=== PATIENT | female | born 1965 | race Caucasian/White ===

== ENCOUNTER → 2017-01-07 | Outpatient (REF) | payer OTHER | LOC: M SFHCCLAY 14:37 | PROVIDERS: ATTEND Family Medicine | DX: Z12.4 Encounter for screening for malignant neoplasm of cervix (principal) ==

== ENCOUNTER → 2017-01-11 | Outpatient (CLI) | payer OTHER ==
--- NOTE | 2017-01-11 16:45 | REP ---
Clinical: Trauma. Technique: AP, lateral, bilateral oblique views left foot . Findings: The osseous structures and joint spaces are intact and normal. There is no evidence for acute fracture or dislocation. Surrounding soft tissues are unremarkable. No subcutaneous emphysema or radiodense foreign body. Impression: Normal examination . No acute fracture or dislocation. Signed by Chris Delarosa MD 01/11/2017 04:36 P
== END ==
LOC: M WUC 16:09
PROVIDERS: ATTEND Physician Assistant
DX: S90.32XA Contusion of left foot, initial encounter (principal); X58.XXXA Exposure to other specified factors, initial encounter; Y92.9 Unspecified place or not applicable; Y93.9 Activity, unspecified; Y99.9 Unspecified external cause status

== ENCOUNTER → 2018-08-09 | Outpatient (CLI) | payer BC ==
--- NOTE | 2018-08-09 15:01 | REP ---
MAXILLOFACIAL CT WITHOUT CONTRAST: HISTORY: Right mandibular cyst. COMPARISON: Complete sinuses 04/25/2015. Very minimal mucosal thickening is present in the right maxillary sinus. The remaining sinuses are clear. The osteomeatal units are patent. The middle and inferior nasal turbinates are partially paradoxical. There is taylor bullosa of the left middle nasal turbinate. There is minimal deviation of the nasal septum to the right. A spur is present arising from the right side of the nasal septum. This spur abuts the right inferior nasal turbinate. The cribriform plate, medial uriostegui of the orbits and optic canals are intact. The carotid canals form a segment of the posterolateral uriostegui of the sphenoid sinus. Calcification is present in the left tonsil. This is secondary to previous inflammatory disease. The marcella- and hypopharynx are normal in appearance. There is no bone lesion. IMPRESSION: Sinus mucosal thickening as described above. Electronically Signed by Giovanni Smith MD 08/09/2018 03:09 P
== END ==
LOC: M RAD 13:57
PROVIDERS: ATTEND Dentist Oral and Maxillofacial Surgery
DX: J34.89 Other specified disorders of nose and nasal sinuses (principal)

== ENCOUNTER → 2019-01-04 | Outpatient (REF) | payer BC ==
[2019-01-06 14:29] LABS: HPV HYBRID CAPTURE II Negative (Negative)
== END ==
LOC: M LAB REF 17:12
PROVIDERS: ATTEND Obstetrics & Gynecology
DX: Z12.4 Encounter for screening for malignant neoplasm of cervix (principal)
CPT/HCPCS: 87624; G0123

== ENCOUNTER → 2019-01-07 | Outpatient (CLI) | payer BC ==
--- NOTE | 2019-01-07 16:05 | REP ---
Pelvic sonography: History: Pelvic pain. Evaluate uterus and ovaries. Comparison pelvic sonography October 11, 2015. Findings: Transabdominal and transvaginal scanning are performed. Uterine dimensions are normal at 5.2 x 2.1 x 2.3 cm. Endometrial echo 0.2 cm thick and centrally placed. Uterus is retroverted. No focal uterine mass is seen. No free fluid is noted. The visualized bladder uriostegui are smooth. Normal size ovaries are seen bilaterally. Right ovary dimensions are 1.7 x 1.1 x 1.7 cm. The left ovary measures 2.1 x 1.0 x 1.4 cm. Doppler flow is normal in both ovaries, resistive indices are 0.56 and 0.57 on the right and left respectively. Impression: No abnormality noted. Retroverted uterus. Electronically Signed by Ed Painter MD 01/07/2019 04:05 P
== END ==
LOC: M RAD 11:55
PROVIDERS: ATTEND Obstetrics & Gynecology
DX: R10.2 Pelvic and perineal pain (principal)

== ENCOUNTER → 2019-09-03 | Outpatient (CLI) | payer BC | LOC: M LABSMTC 12:35 | PROVIDERS: ATTEND Family Medicine | DX: Z11.59 Encounter for screening for other viral diseases (principal) ==

== ENCOUNTER → 2020-02-17 | Outpatient (REF) | payer BC | LOC: M LAB REF 15:19 | PROVIDERS: ATTEND Physician Assistant | DX: R19.7 Diarrhea, unspecified (principal) ==

== ENCOUNTER → 2020-04-12 | Outpatient (CLI) | payer BC | LOC: M LABSMTC 14:48 | PROVIDERS: ATTEND Family Medicine | DX: Z20.828 Contact with and (suspected) exposure to other viral communicable diseases (principal) ==

== ENCOUNTER → 2020-05-14 | Outpatient (CLI) | payer BC ==
[~2020-05-14] MED LIST: GASTROGRAFIN SOLUTION 30ML (Q9963) As Ordered ONE; ISOVUE-370 76% 100ML VIAL As Ordered ONE
--- NOTE | 2020-05-15 08:08 | REP ---
INDICATION: DIARRHEA UNSPECIFIED GENERALIZED ABD PAIN. COMPARISON: None TECHNIQUE: Axial contrast-enhanced images from the lung bases to the pubic symphysis using oral and 100 cc Isovue 370 intravenous contrast material. Coronal and sagittal reformations obtained.. This CT examination was performed using the following dose reduction techniques: Automated exposure control, adjustment of mA and/or kv according to the patient's size, and the use of iterative reconstruction technique. FINDINGS: Lung bases are clear. Visualized heart and pericardium normal. Liver demonstrates mild diffuse fatty infiltration without focal hepatic lesion. The spleen, pancreas, gallbladder, bilateral adrenal glands and kidneys are normal. The enteric system including stomach, small, and large bowel appears normal. No evidence for obstruction or acute inflammatory process. Normal terminal ileum and appendix are identified in the right lower quadrant. Pelvis demonstrates normal bladder and age-appropriate uterus/adnexa. No ascites. No free air. No intraperitoneal or retroperitoneal adenopathy. Abdominal aorta and vasculature appear normal. Musculoskeletal structures are intact and without acute osseous abnormality. IMPRESSION: No acute abdominopelvic pathology appreciated. <Electronically signed by Chris Delarosa > 05/15/20 [id number]
== END ==
LOC: M RAD 16:05
PROVIDERS: ATTEND Family Medicine
DX: R19.7 Diarrhea, unspecified (principal); R10.84 Generalized abdominal pain
CPT/HCPCS: 74177; Q9963; Q9967

== ENCOUNTER → 2020-05-16 | Outpatient (CLI) | payer BC ==
[2020-05-16 17:40] LABS: BASO # 0.1 10^3/uL (0.0-0.2); BASO % 1.7 % (0.0-1.0); EOS # 0.1 10^3/uL (0.0-0.5); EOS % 2.3 % (0.0-3.0); HEMATOCRIT 40.5 % (36.0-47.0); HEMOGLOBIN 13.2 g/dl (12.0-15.5); LYMPH # 1.6 10^3/uL (1.5-5.0); LYMPH % 30.1 % (24.0-44.0); MEAN CORPUSCULAR HEMOGLOBIN 31.3 pg (27.0-33.0); MEAN CORPUSCULAR HGB CONC 32.6 g/dl (32.0-36.5); MONO # 0.4 10^3/uL (0.0-0.8); MONO % 7.7 % (0.0-5.0); NEUTROPHILS # 3.1 10^3/uL (1.5-8.5); NEUTROPHILS % 57.8 % (36.0-66.0); PLATELET COUNT, AUTOMATED 373 10^3/uL (150-450); RED BLOOD COUNT 4.22 10^6/uL (4.00-5.40); WHITE BLOOD COUNT 5.3 10^3/uL (4.0-10.0)
[2020-05-16 18:17] LABS: ALBUMIN 4.2 GM/DL (3.2-5.2); ALT/SGPT 19 U/L (12-78); BILIRUBIN,DIRECT < 0.1 MG/DL (0.0-0.2); BILIRUBIN,TOTAL 0.5 MG/DL (0.2-1.0); BLOOD UREA NITROGEN 11 MG/DL (7-18); CARBON DIOXIDE LEVEL 28 MEQ/L (21-32); CHLORIDE LEVEL 109 MEQ/L (98-107); CREATININE FOR GFR 0.91 MG/DL (0.55-1.30); FERRITIN 63 NG/ML (8-252); GLOMERULAR FILTRATION RATE > 60.0 (>51); GLUCOSE, FASTING 103 MG/DL (70-100); IRON (FE) 108 UG/DL (50-170); PERCENT SATURATION 33.6 % (13.2-45.0); POTASSIUM SERUM 4.3 MEQ/L (3.5-5.1); SODIUM LEVEL 140 MEQ/L (136-145); THYROID STIMULATING HORMONE 0.948 uIU/ML (0.358-3.740); TOTAL IRON BINDING CAPACITY 321 UG/DL (250-450); TOTAL PROTEIN 6.7 GM/DL (6.4-8.2)
[2020-05-18 18:07] LABS: ENDOMYSIAL ABY IgA Negative (Negative); TISSUE TRANSGLUTAMINASE IgA <2 U/mL (0-3); TISSUE TRANSGLUTAMINASE IgG <2 U/mL (0-5)
== END ==
LOC: M WUC 14:47
PROVIDERS: ATTEND Nurse Practitioner Adult Health
DX: R19.7 Diarrhea, unspecified (principal); R10.30 Lower abdominal pain, unspecified

== ENCOUNTER → 2020-05-24 | Outpatient (REF) | payer BC ==
[2020-05-25 16:09] LABS: Lyme Disease IgG/IgM Antibodie <0.91 ISR (0.00-0.90); Lyme Disease IgM Ab Quantitati <0.80 index (0.00-0.79)
== END ==
LOC: M LABWUC 11:18
PROVIDERS: ATTEND Family Medicine
DX: R19.7 Diarrhea, unspecified (principal); R42 Dizziness and giddiness

== ENCOUNTER → 2020-06-01 | Outpatient (CLI) | payer BC | LOC: M LABSMTC 12:27 | PROVIDERS: ATTEND Anesthesiology | DX: Z01.812 Encounter for preprocedural laboratory examination (principal); Z20.822 Contact with and (suspected) exposure to COVID-19 ==

== ENCOUNTER 2020-06-06 11:21 | Day surgery (SDC) | payer BC ==
[~2020-06-06] VITALS: Ht 162.6 cm; Wt 43.5 kg
[~2020-06-06 11:21] MED LIST changes: -GASTROGRAFIN SOLUTION 30ML (Q9963) As Ordered ONE; -ISOVUE-370 76% 100ML VIAL As Ordered ONE; +NS 1,000 ML IV ONE
--- OUTSIDE RECORDS SUMMARY | 2020-06-06 11:31 | CCD | Continuity of Care Document ---
Author Dorita Osuna D.O. Organization Unknown Address [address] [place] [address] Phone [phone] Care Team Providers Care Silica Mixer Operator Name Role Phone Thais Carreon D.O. AUTM [phone] Francy Bruce M.D. AUTM [phone] Problems Description No Information Available Social History Type Date Description Comments Sex Unknown ETOH Use Drinks 1 Alcoholic Beverage Per Day Tobacco Use Start: Unknown Patient has never smoked Recreational Drug Use Denies Drug Use Smoking Status Reviewed: 04/25/20 Patient has never smoked Exercise Type/Frequency Yoga Exercise Type/Frequency Walks 4 times a week Sun Exposure Uses sunscreen Seat Belt/Car Seat Always uses seat belt Allergies, Adverse Reactions, Alerts Description No Known Drug Allergies Medications Active Medications SIG Qnty Indications Ordering Provide r Date Hydrocortisone (Perianal) 2.5% Cre am apply to external hemorrhoidal area and rectal area twice daily as needed 30gm K64.9 Thais Carreon D.O. 02/16/2020 Hydrocortisone Acetate 25mg Suppos itory insert one suppository daily as needed 12units K64.9 Thais Franks D.O. 02/16/2020 Immunizations Description No Information Available Vital Signs Date Vital Result Comment 04/25/2020 8:26am BP Systolic 120 mmHg BP Diastolic 70 mmHg Height 63.0 inches 5'3" Weight 104.38 lb BMI (Body Mass Index) 18.5 kg/m2 Heart Rate 81 /min Respiratory Rate 18 /min Body Temperature 98.2 F O2 % BldC Oximetry 97 % Purdin Body Weight 115 lb 02/16/2020 1:42pm BP Systolic 110 mmHg BP Diastolic 68 mmHg Height 63.0 inches 5'3" Weight 105.00 lb BMI (Body Mass Index) 18.6 kg/m2 Heart Rate 66 /min Respiratory Rate 18 /min Body Temperature 98.5 F O2 % BldC Oximetry 99 % Purdin Body Weight 115 lb Results Test Acquired Date Facility Test Result H/L Range Note Coronavirus 2019 Nasopharygeal 04/12/2020 [facility] Outpa tient Testing (Registration) [address] [place] [address] [phone] Coronavirus 2019 Nasopharygeal This nucleic aci <SEE N OTE> 1 G I Profile Stool PCR So 02/17/2020 [facility] Outpatient Testing (Registration) [address] [place] [address] [phone] Campylobacter Not Detected 2 C.difficile A/B Not Detected 3 Plesiomonas shigelloides Not Detected 4 Salmonella Not Detected 5 Vibro Not Detected 6 Vibrio cholerae Not Detected 7 Yersinia enterocolitica Not Detected 8 Enteroaggregative Ecoli Not Detected 9 Entropathogenic Ecoli Not Detected 10 Enterotoxigenic Ecoli Not Detected 11 Shiga toxin producing Ecoli Not Detected 12 E coli 0157 Not applicable 13 Shigella Entroinvasive Ecoli Not Detected 14 Cryptosporidium Not Detected 15 Cyclospora cayetanensis Not Detected 16 Entamoeba histolytica Not Detected 17 Giardia lamblia Not Detected 18 Adenovirus F 40/41 Not Detected 19 Astrovirus Not Detected 20 Norovirus GI/Gii Not Detected 21 Rotavirus A Not Detected 22 Saprovirus Performed at: B <SEE NOTE> 23 Laboratory test finding 01/05/2020 [facility] Image-Guided Pap W/Age Based SCR Protocols (SEE NOTE) 24 Thinprep Tis Pap And HPV Mrna E6/E7 Refl 01/05/2020 [facility] Report Status: DNR Normal Clinical Information: (SEE NOTE) Normal 25 LMP: (SEE NOTE) Normal 26 Prev. Pap: (SEE NOTE) Normal 27 Prev. BX: NONE GIVEN Normal Source: (SEE NOTE) Normal 28 Statement Of Adequacy: (SEE NOTE) Normal 29 General Categorization: DNR Normal Interpretation/Result: (SEE NOTE) 30 Infection: DNR Normal Comment: (SEE NOTE) Normal 31 Vinyl Cutter: (SEE NOTE) Normal See Note: 32 Review Vinyl Cutter: DNR Normal Pathologist: DNR Normal Comment (SEE NOTE) 33 HPV mRNA E6/E7 Not Detected Normal Not Detected 34 Laboratory test finding 01/05/2020 [facility] Dia Enhanced PDF Report [id number] SEE IMAGE 1 This nucleic acid amplificat ion test was developed and its performance characteristics determined by [facility]. Nucleic acid amplification tests include PCR and TMA. This test has not been FDA cleared or approved. This test has been authorized by FDA under an Emergency Use Authorization (EUA). This test is only authorized for the duration of time the declaration that circumstances exist justifying the authorization of the emergency use of in vitro diagnostic tests for detection of SARS-CoV-2 virus and/or diagnosis of COVID-19 infection under section 564(b)(1) of the Act, 21 U.S.C. 360bbb-3 (b) (1), unless the authorization is terminated or revoked sooner. When diagnostic testing is negative, the possibility of a false negative result should be considered in the context of a patient's recent exposures and the presence of clinical signs and symptoms consistent with COVID-19. An individual without symptoms of COVID-19 and who is not shedding SARS-CoV-2 virus would expect to have a negative (not detected) result in this assay. Performed at: [facility] [address] [facility], [place], [place] [id number] [employer]: Afua Justin PhD, Phone: [phone] Not Detected 2 3 4 5 6 7 8 9 10 11 12 13 14 15 16 17 18 19 20 21 22 23 Performed at: [address] [id number] [employer]: Kevan Figueroa MD, Phone: [phone] Not Detected 24 This order for age-based cer vical cancer and STI screening follows ACOG guidelines(PB 168, 140, MSC779). See individual assays for performing site location. 25 None given 26 NONE GIVEN 27 NONE GIVEN 28 Cervix, Endocervix 29 SATISFACTORY FOR EVALUATION 30 Negative for intraepithelial lesion or malignancy. Atrophic pattern; predominantly parabasal cells 31 This Pap test has been evalu ated with computer assisted technology. Parabasal cells in smears that lack maturation due to atrophy or other hormonal reasons cannot be differentiated from transformation zone cells. Accordingly, presence or absence of endocervical or transformation zone components cannot be reported in this patient. 32 Reference Range: ZL, CT(ASCP) CT screening location: [facility], [address] [place] [address], [place] [address] . 33 EXPLANATORY NOTE: The Pap is a screening test for cervical cancer. It is not a diagnostic test and is subject to false negative and false positive results. It is most reliable when a satisfactory sample, regularly obtained, is submitted with relevant clinical findings and history, and when the Pap result is evaluated along with historic and current clinical information. 34 This test was performed usin g the APTIMA HPV Assay ([employer] This assay detects E6/E7 viral messenger RNA (mRNA) from 14 high-risk HPV types (16,18,31,33,35,39,45,51,52,56,58,59,66,68). The analytical performance characteristics of this assay have been determined by [employer]. The modifications have not been cleared or approved by the FDA. This assay has been validated pursuant to the CLIA regulations and is used for clinical purposes. NO COLLECTION DATE RECEIVED. WE HAVE USED THE DATE THE SPECIMEN WAS RECEIVED BY THIS LABORATORY THE COLLECTION DATE. IF THIS IS INCORRECT, PLEASE CONTACT CLIENT SERVICES. PHONE NUMBER: [phone] Procedures Description No Information Available Medical Devices Description No Information Available Encounters Type Date Location Provider Dx Diagnosis Office Visit 04/25/2020 8:20a [facility] Mendez Brown.OGayathri R19.7 Diarrhea, unspecified K64.9 Unspecified hemorrhoids Office Visit 02/16/2020 1:30p [facility] Ruthie BrownOGayathri R19.7 Diarrhea, unspecified K64.9 Unspecified hemorrhoids Office Visit 01/04/2020 1:00p [facility] Ruthie CalixOGayathri Z01.419 Encntr for livestock counter exam (general ) (routine) w/o abn findings Assessments Date Code Description Provider 04/25/2020 R19.7 Diarrhea, unspecified Mendez Covarrubias.OGayathri 04/25/2020 K64.9 Unspecified hemorrhoids Ruthie KennedyOGayathri 02/16/2020 R19.7 Diarrhea, unspecified Thais Rosa Maria ano-Fely, D.O. 02/16/2020 K64.9 Unspecified hemorrhoids Thais Fontaine D.O. 01/04/2020 Z01.419 Encounter for gyneco logical examination (general) (routine) without abnormal findings Thais Carreon D.O. Plan of Treatment No Information Available Functional Status Description No Information Available Mental Status Description No Information Available Referrals Refer to Dr Reason for Referral Status Appt Date Heaven Cardona M.D. This is a 54 year old female with chronic diarrhea and her GI panel has been negative. Please evalaute and treat. [facility] [address] [place] [address] [phone]
--- OUTSIDE RECORDS SUMMARY | 2020-06-06 11:31 | CCD | Continuity of Care Document ---
Author Author Dorita HAAS M.D. Organization Unknown Address [address] [place] [address] Phone [phone] Care Team Providers Care Certified Appliance Service Technician Name Role Phone Thais Carreon DO AUTM [phone] Problems Active Problems Provider Date Diarrhea Fredy Haas M.D. Onset: 05/29/19 21 Screening for malignant neoplasm of colon Fredy rome M.D. Onset: 08/03/2014 Social History Type Date Description Comments Sex Unknown ETOH Use Occasionally Tobacco Use Start: Unknown Patient has never smoked Allergies, Adverse Reactions, Alerts Description No Known Drug Allergies Medications Active Medications SIG Qnty Indications Ordering Provide r Date Sutab [id number] Tablets as directed 1box Fredy Haas M.D. 05/29/2020 History Medications No Active Medications Unknown - 05/29/2020 Immunizations Description No Information Available Vital Signs Date Vital Result Comment 05/29/2020 11:39am Height 64 inches 5'4" Weight 101.00 lb BP Systolic 113 mmHg BP Diastolic 86 mmHg Heart Rate 59 /min BMI (Body Mass Index) 17.3 kg/m2 Weight 45.814 kg Body Temperature 97.5 F 08/03/2014 2:07pm Height 64 inches 5'4" Weight 103.00 lb BP Systolic 110 mmHg BP Diastolic 80 mmHg Heart Rate 58 /min BMI (Body Mass Index) 17.7 kg/m2 Weight 46.721 kg Results Description No Information Available Procedures Description No Information Available Medical Devices Description No Information Available Encounters Type Date Location Provider Dx Diagnosis Office Visit 05/29/2020 11:00a Main Office Fredy S. Waldo,M.D. R 19.7 Diarrhea, unspecified Assessments Date Code Description Provider 05/29/2020 R19.7 Diarrhea, unspecified Fredy Haas M.D. Plan of Treatment Future Appointment(s):* 06/06/2020 12:45 pm - Fredy Haas M.D. at Main Office 05/29/2020 - Fredy Haas M.D.* R19.7 Diarrhea, unspecified* Comments:* 54 yo wf who presents for a colonoscopy due to chronic diarrhea for 2 months. Has bouts 2 to 3 times per day. No family h/o colon cancer. Last scope was in 2014.Plan:1. Colonoscopy to cecum + biopsies.2. Informed consent. Functional Status Description No Information Available Mental Status Description No Information Available Referrals Description No Information Available
--- OUTSIDE RECORDS SUMMARY | 2020-06-06 11:31 | CCD | Continuity of Care Document ---
Author Author Dorita CARREON D.O. Organization Unknown Address [address] [place] [address] Phone [phone] Care Team Providers Care Splicer Apprentice Name Role Phone Thais Carreon D.O. AUTM [phone] Francy Bruce M.D. AUTM [phone] Heaven Cardona M.D. AUTM [phone] Problems Description No Information Available Social History [...] SIG Qnty Indications Ordering Provide r Date Ciprofloxacin HCL 500mg Tablets 1 tablet by mouth twice a day for 7 days 14tabs Thais vela DGayathriOGayathri 05/14/2020 Metronidazole 500mg Tablets take one tablet by mouth twice daily for 7 days 14tabs Ruthie ValeOGayathri 05/14/2020 Hydrocortisone (Perianal) 2.5% Cre am apply to external hemorrhoidal area and rectal area twice daily as needed 30gm K64.9 Mendez Calix.OGayathri 02/16/2020 Hydrocortisone Acetate 25mg Suppos itory insert one suppository daily as needed 12units K64.9 Ruthie ValeOGayathri 02/16/2020 Immunizations Description No Information Available Vital Signs Date Vital Result Comment 04/25/2020 8:26am BP Systolic 120 mmHg BP Diastolic 70 mmHg Height 63.0 inches 5'3" Weight 104.38 lb BMI (Body Mass Index) 18.5 kg/m2 Heart Rate 81 /min Respiratory Rate 18 /min Body Temperature 98.2 F O2 % BldC Oximetry 97 % [place] Body Weight 115 lb 02/16/2020 1:42pm BP Systolic 110 mmHg BP Diastolic 68 mmHg Height 63.0 inches 5'3" Weight 105.00 lb BMI (Body Mass Index) 18.6 kg/m2 Heart Rate 66 /min Respiratory Rate 18 /min Body Temperature 98.5 F O2 % BldC Oximetry 99 % [place] Body Weight 115 lb Results Test Acquired Date Facility Test Result H/L Range Note Lyme Disease SCRN With Confirm 05/24/[address] [id number] [phone] Lyme Disease IgG/IgM Antibodie <0.91 ISR Normal 0 .00-0.90 1 Lyme Disease IgM Ab Quantitati <0.80 index Normal 0.00-0.79 2 CBC With Differential 05/16/2020 [facility] Outpatient Lesia knowles (Registration) [address] [place] [phone] White Blood Count 5.3 10 Normal 4.0-10.0 Red Blood Count 4.22 10 Normal 4.00-5.40 Hemoglobin 13.2 g/dL Normal 12.0-15.5 Hematocrit 40.5 % Normal 36.0-47.0 Mean Corpuscular Volume 96.0 fl Normal 80.0-96.0 Mean Corpuscular Hemoglobin 31.3 pg Normal 27.0-33.0 Mean Corpuscular HGB Conc 32.6 g/dL Normal 32.0-36.5 Red Cell Distribution Width 11.9 % Normal 11.5-14.5 Platelet Count, Automated 373 10 Normal 150-450 Neutrophils % 57.8 % Normal 36.0-66.0 Lymph % 30.1 % Normal 24.0-44.0 Becker % 7.7 % High 0.0-5.0 Eos % 2.3 % Normal 0.0-3.0 Baso % 1.7 % High 0.0-1.0 Immature Granulocyte % 0.4 % Normal 0-3.0 Nucleated Red Blood Cell % 0.0 % Normal 0-0 Neutrophils # 3.1 10 Normal 1.5-8.5 Lymph # 1.6 10 Normal 1.5-5.0 Becker # 0.4 10 Normal 0.0-0.8 Eos # 0.1 10 Normal 0.0-0.5 Baso # 0.1 10 Normal 0.0-0.2 Liver Profile 05/16/2020 [facility] Outpatient Testi ng (Registration) [address] [place] [address] [phone] Ast/Sgot 15 U/L Normal 7-37 Alt/SGPT 19 U/L Normal 12-78 Alkaline Phosphatase 41 U/L Low 45-117 Bilirubin,Total 0.5 mg/dL Normal 0.2-1.0 Bilirubin,Direct < 0.1 mg/dL Normal 0.0-0.2 Total Protein 6.7 GM/DL Normal 6.4-8.2 Albumin 4.2 GM/DL Normal 3.2-5.2 Albumin/Globulin Ratio 1.7 Normal 1.2-2.2 Basic Metabolic Profile 05/16/2020 [facility] Outpatient T esting (Registration) [address] [place] [address] [phone] Glucose, Fasting 103 mg/dL High 70-100 Blood Urea Nitrogen 11 mg/dL Normal 7-18 Creatinine For GFR 0.91 mg/dL Normal 0.55-1.30 Glomerular Filtration Rate > 60.0 Normal >51 3 Sodium Level 140 mEq/L Normal 136-145 Potassium Serum 4.3 mEq/L Normal 3.5-5.1 Chloride Level 109 mEq/L High 98-107 Carbon Dioxide Level 28 mEq/L Normal 21-32 Anion Gap 3 mEq/L Low 8-16 Calcium Level 9.0 mg/dL Normal 8.5-10.1 Total Iron Binding Capacit 05/16/2020 [facility] Outpatien t Testing (Registration) [address] [place] [address] [phone] Iron (Fe) 108 g/dL Normal 50-170 Total Iron Binding Capacity 321 g/dL Normal 250-450 Percent Saturation 33.6 % Normal 13.2-45.0 Laboratory test finding 05/16/2020 [facility] Outpatient T esting (Registration) [address] [place] [address] [phone] Immunoglobulin A 164.0 mg/dL Normal 70-400 Thyroid Stimulating Hormone 0.948 uIU/ML Normal 0.358-3.740 Ferritin 63 NG/ML Normal 8-252 Laboratory test finding 05/16/2020 [facility] Outpatient T esting (Registration) [address] [place] [address] [phone] Tissue Transglutaminase IgG <2 U/mL Normal 0-5 4 Tissue Transglutaminase IgA <2 U/mL Normal 0-3 5 Endomysial Joselyn IgA Negative Normal Negative 6 Endomysial Joselyn IgG SEE SEPARATE REP <SEE NOTE> Normal <1:10 7 Coronavirus 2019 Nasopharygeal 04/12/2020 [facility] Outpa tient Testing (Registration) [address] [place] [address] [phone] Coronavirus 2019 Nasopharygeal This nucleic aci <SEE N OTE> 8 G I Profile Stool PCR So 02/17/2020 [facility] Outpatient Testing (Registration) [address] [place] [address] [phone] Campylobacter Not Detected 9 C.difficile A/B Not Detected 10 Plesiomonas shigelloides Not Detected 11 Salmonella Not Detected 12 Vibro Not Detected 13 Vibrio cholerae Not Detected 14 Yersinia enterocolitica Not Detected 15 Enteroaggregative Ecoli Not Detected 16 Entropathogenic Ecoli Not Detected 17 Enterotoxigenic Ecoli Not Detected 18 Shiga toxin producing Ecoli Not Detected 19 E coli 0157 Not applicable 20 Shigella Entroinvasive Ecoli Not Detected 21 Cryptosporidium Not Detected 22 Cyclospora cayetanensis Not Detected 23 Entamoeba histolytica Not Detected 24 Giardia lamblia Not Detected 25 Adenovirus F 40/41 Not Detected 26 Astrovirus Not Detected 27 Norovirus GI/Gii Not Detected 28 Rotavirus A Not Detected 29 Saprovirus Performed at: B <SEE NOTE> 30 Laboratory test finding 01/05/2020 [facility] Image-Guided Pap W/Age Based SCR Protocols (SEE NOTE) 31 Thinprep Tis Pap And HPV Mrna E6/E7 Refl 01/05/2020 [facility] Report Status: DNR Normal Clinical Information: (SEE NOTE) Normal 32 LMP: (SEE NOTE) Normal 33 Prev. Pap: (SEE NOTE) Normal 34 Prev. BX: NONE GIVEN Normal Source: (SEE NOTE) Normal 35 Statement Of Adequacy: (SEE NOTE) Normal 36 General Categorization: DNR Normal Interpretation/Result: (SEE NOTE) 37 Infection: DNR Normal Comment: (SEE NOTE) Normal 38 Fire Information Officer: (SEE NOTE) Normal See Note: 39 Review Fire Information Officer: DNR Normal Pathologist: DNR Normal Comment (SEE NOTE) 40 HPV mRNA E6/E7 Not Detected Normal Not Detected 41 Laboratory test finding 01/05/2020 [facility] Enhanced PDF Report [id number] SEE IMAGE 1 Negative <0.91 Equivocal 0.91 - 1.09 Positive >1.09 2 Negative <0.80 Equivocal 0.80 - 1.19 Positive >1.19 . IgM levels may peak at 3-6 weeks post infection, then gradually decline. Performed at: [address] [id number] Community Organization Worker: Eliana Reis MD, Phone: [phone] 3 Units are mL/min/1.73 m2 Chronic Kidney Disease Staging per NKF: Stage I & II GFR >=60 Normal to Mildly Decreased Stage III GFR 30-59 Moderately Decreased Stage IV GFR 15-29 Severely Decreased Stage V GFR <15 Very Little GFR Left ESRD GFR <15 on [employer] 4 Negative 0 - 5 Weak Positive 6 - 9 Positive >9 5 Negative 0 - 3 Weak Positive 4 - 10 Positive >10 . Tissue Transglutaminase (tTG) has been identified as the endomysial antigen. Studies have demonstr- ated that endomysial IgA antibodies have over 99% specificity for gluten sensitive enteropathy. 6 Performed at: [address] [id number] Community Organization Worker: Eliana Reis MD, Phone: [phone] 7 SEE SEPARATE REPORT Testing performed at reference lab . Report copy to follow on a separate form. 05/25/20 REF LAB#:[phone] [id number] This nucleic acid amplificat ion test was developed and its performance characteristics determined by [facility]. Nucleic acid amplification tests include PCR and [...] detected) result in this assay. Performed at: [facility] [address], [place], [place] [id number] Community Organization Worker: Afua Justin PhD, Phone: [phone] Not Detected 9 10 11 12 13 14 15 16 17 18 19 20 21 22 23 24 25 26 27 28 29 30 Performed at: [address] [id number] Community Organization Worker: Kevan Figueroa MD, Phone: [phone] Not Detected 31 This order for age-based cer vical cancer and STI screening follows ACOG guidelines(PB 168, 140, HRV724). See individual assays for performing site location. 32 None given 33 NONE GIVEN 34 NONE GIVEN 35 Cervix, Endocervix 36 SATISFACTORY FOR EVALUATION 37 Negative for intraepithelial lesion or malignancy. Atrophic pattern; predominantly parabasal cells 38 This Pap test has been evalu ated with computer assisted technology. Parabasal cells in smears that lack maturation due to atrophy or other hormonal reasons cannot be differentiated from transformation zone cells. Accordingly, presence or absence of endocervical or transformation zone components cannot be reported in this patient. 39 Reference Range: ZL, CT(ASCP) CT screening location: [facility] [place], [address] [place] [address], [place] [address] . 40 EXPLANATORY NOTE: The Pap is a screening test for cervical cancer. It is not a diagnostic test and is subject to false negative and false positive results. It is most reliable when a satisfactory sample, regularly obtained, is submitted with relevant clinical findings and history, and when the Pap result is evaluated along with historic and current clinical information. 41 This test was performed ravi gomez the APTIMA HPV Assay ([employer] This assay detects E6/E7 viral messenger RNA (mRNA) from 14 high-risk HPV types (16,18,31,33,35,39,45,51,52,56,58,59,66,68). The analytical performance characteristics of this assay have been determined by [facility]. The modifications have not been cleared or approved by the FDA. This assay has been validated pursuant to the CLIA regulations and is used for clinical purposes. NO COLLECTION DATE RECEIVED. WE HAVE USED THE DATE THE SPECIMEN WAS RECEIVED BY THIS LABORATORY THE COLLECTION DATE. IF THIS IS INCORRECT, PLEASE CONTACT CLIENT SERVICES. PHONE NUMBER: [phone] Procedures Description No Information Available Medical Devices Description No Information Available Encounters Type Date Location Provider Dx Diagnosis Office Visit 04/25/2020 8:20a [facility] Mendez Calix.OGayathri R19.7 Diarrhea, unspecified K64.9 Unspecified hemorrhoids Office Visit 02/16/2020 1:30p [facility] Mendez Calix.O. R19.7 Diarrhea, unspecified K64.9 Unspecified hemorrhoids Office Visit 01/04/2020 1:00p [facility] Mendez Calix.OGayathri Z01.419 Encntr for ob gyn physician assistant exam (general ) (routine) w/o abn findings Assessments Date Code Description Provider 04/25/2020 R19.7 Diarrhea, unspecified Mendez Covarrubias.OGayathri 04/25/2020 K64.9 Unspecified hemorrhoids Mendez Kennedy.OGayathri 02/16/2020 R19.7 Diarrhea, unspecified Thais Smith D.OGayathri 02/16/2020 K64.9 Unspecified hemorrhoids Mendez Kennedy.OGayathri 01/04/2020 Z01.419 Encounter for gyneco logical examination (general) (routine) without abnormal findings Thais Carreon D.O. Plan of Treatment No Information Available Functional Status Description No Information Available Mental Status Description No Information Available Referrals Refer to Reason for Referral Status Appt Date Heaven Cardona M.D. This is a 54 year old female with chronic diarrhea and her GI panel has been negative. Please evalaute and treat. Closed 05/23/2020 [facility] [address] [place], [place] [id number] [phone]
--- OUTSIDE RECORDS SUMMARY | 2020-06-06 11:31 | CCD | Continuity of Care Document ---
Author Author Dorita CARREON D.O. Organization Unknown Address [address] [place] [address] Phone [phone] Care Team Providers Care Chyron Operator Name Role Phone Thais Carreon D.O. AUTM [phone] Francy Bruce M.D. AUTM [phone] Heaven Cardona M.D. AUTM [phone] Problems Description No Information Available Social History [...] F O2 % BldC Oximetry 97 % [place] Body Weight 115 lb 02/16/2020 1:42pm BP Systolic 110 mmHg BP Diastolic 68 mmHg Height 63.0 inches 5'3" Weight 105.00 lb BMI (Body Mass Index) 18.6 kg/m2 Heart Rate 66 /min Respiratory Rate 18 /min Body Temperature 98.5 F O2 % BldC Oximetry 99 % [place] Body Weight 115 lb Results Test Acquired Date Facility Test Result H/L Range Note CBC With Differential 05/16/2020 [facility] Outpatient Lesia knowles (Registration) [address] [place] [address] [phone] White Blood Count 5.3 10 Normal 4.0-10.0 [...] 36.0-66.0 Lymph % 30.1 % Normal 24.0-44.0 [place] % 7.7 % High 0.0-5.0 Eos % 2.3 % Normal 0.0-3.0 Baso % 1.7 % High 0.0-1.0 Immature Granulocyte % 0.4 % Normal 0-3.0 Nucleated Red Blood Cell % 0.0 % Normal 0-0 Neutrophils # 3.1 10 Normal 1.5-8.5 Lymph # 1.6 10 Normal 1.5-5.0 [place] # 0.4 10 Normal 0.0-0.8 Eos # 0.1 10 Normal 0.0-0.5 Baso # 0.1 10 Normal 0.0-0.2 Liver Profile 05/16/2020 [facility] Outpatient Testi ng (Registration) [address] [place] [address] [phone] Ast/Sgot 15 U/L Normal 7-37 Alt/SGPT 19 U/L Normal 12-78 Alkaline Phosphatase 41 U/L Low 45-117 Bilirubin,Total 0.5 mg/dL Normal 0.2-1.0 Bilirubin,Direct < 0.1 mg/dL Normal 0.0-0.2 Total Protein 6.7 GM/DL Normal 6.4-8.2 Albumin 4.2 GM/DL Normal 3.2-5.2 Albumin/Globulin Ratio 1.7 Normal 1.2-2.2 Basic Metabolic Profile 05/16/2020 [facility] Outpatient T esting (Registration) [address] [place] [address] [phone] Glucose, Fasting 103 mg/dL High 70-100 Blood Urea Nitrogen 11 mg/dL Normal 7-18 Creatinine For GFR 0.91 mg/dL Normal 0.55-1.30 Glomerular Filtration Rate > 60.0 Normal >51 1 Sodium Level 140 mEq/L Normal 136-145 Potassium Serum 4.3 mEq/L Normal 3.5-5.1 Chloride Level 109 mEq/L High 98-107 Carbon Dioxide Level 28 mEq/L Normal 21-32 Anion Gap 3 mEq/L Low 8-16 Calcium Level 9.0 mg/dL Normal 8.5-10.1 Total Iron Binding Capacit 05/16/2020 [facility] Outpatien t Testing (Registration) [address] [place] [address] [phone] Iron (Fe) 108 g/dL Normal 50-170 Total Iron Binding Capacity 321 g/dL Normal 250-450 Percent Saturation 33.6 % Normal 13.2-45.0 Laboratory test finding 05/16/2020 [facility] Outpatient T esting (Registration) [address] [place] [address] [phone] Immunoglobulin A 164.0 mg/dL Normal 70-400 Thyroid Stimulating Hormone 0.948 uIU/ML Normal 0.358-3.740 Ferritin 63 NG/ML Normal 8-252 Coronavirus 2019 Nasopharygeal 04/12/2020 [facility] Outpa tient Testing (Registration) [address] [place], [place] [id number] [phone] Coronavirus 2019 Nasopharygeal This nucleic aci <SEE N OTE> 2 G I Profile Stool PCR So 02/17/2020 [facility] Outpatient Testing (Registration) [address] [place], [place] [id number] [phone] Campylobacter Not Detected 3 C.difficile A/B Not Detected 4 Plesiomonas shigelloides Not Detected 5 Salmonella Not Detected 6 Vibro Not Detected 7 Vibrio cholerae Not Detected 8 Yersinia enterocolitica Not Detected 9 Enteroaggregative Ecoli Not Detected 10 Entropathogenic Ecoli Not Detected 11 Enterotoxigenic Ecoli Not Detected 12 Shiga toxin producing Ecoli Not Detected 13 E coli 0157 Not applicable 14 Shigella Entroinvasive Ecoli Not Detected 15 Cryptosporidium Not Detected 16 Cyclospora cayetanensis Not Detected 17 Entamoeba histolytica Not Detected 18 Giardia lamblia Not Detected 19 Adenovirus F 40/41 Not Detected 20 Astrovirus Not Detected 21 Norovirus GI/Gii Not Detected 22 Rotavirus A Not Detected 23 Saprovirus Performed at: B <SEE NOTE> 24 Laboratory test finding 01/05/2020 [facility] Image-Guided Pap W/Age Based SCR Protocols (SEE NOTE) 25 Thinprep Tis Pap And HPV Mrna E6/E7 Refl 01/05/2020 [facility] Report Status: DNR Normal Clinical Information: (SEE NOTE) Normal 26 LMP: (SEE NOTE) Normal 27 Prev. Pap: (SEE NOTE) Normal 28 Prev. BX: NONE GIVEN Normal Source: (SEE NOTE) Normal 29 Statement Of Adequacy: (SEE NOTE) Normal 30 General Categorization: DNR Normal Interpretation/Result: (SEE NOTE) 31 Infection: DNR Normal Comment: (SEE NOTE) Normal 32 Manager Sales Support: (SEE NOTE) Normal See Note: 33 Review Manager Sales Support: DNR Normal Pathologist: DNR Normal Comment (SEE NOTE) 34 HPV mRNA E6/E7 Not Detected Normal Not Detected 35 Laboratory test finding 01/05/2020 [facility] Enhanced PDF Report [id number] SEE IMAGE 1 Units are mL/min/1.73 m2 Chronic Kidney Disease Staging per NKF: Stage I & II GFR >=60 Normal to Mildly Decreased Stage III GFR 30-59 Moderately Decreased Stage IV GFR 15-29 Severely Decreased Stage V GFR <15 Very Little GFR Left ESRD GFR <15 on IRRIGATION TAX ASSESSOR COLLECTOR 2 This nucleic acid amplificat ion test was developed and its performance characteristics determined by [employer]. Nucleic acid amplification tests include PCR and [...] detected) result in this assay. Performed at: [facility] [address] [place], [place] [id number] Sustainable Development Policy Analyst: Afua Justin PhD, Phone: [phone] Not Detected 3 4 5 6 7 8 9 10 11 12 13 14 15 16 17 18 19 20 21 22 23 24 Performed at: [address] [id number] Sustainable Development Policy Analyst: Kevan Figueroa MD, Phone: [phone] Not Detected 25 This order for age-based cer vical cancer and STI screening follows ACOG guidelines(PB 168, 140, QIF209). See individual assays for performing site location. 26 None given 27 NONE GIVEN 28 NONE GIVEN 29 Cervix, Endocervix 30 SATISFACTORY FOR EVALUATION 31 Negative for intraepithelial lesion or malignancy. Atrophic pattern; predominantly parabasal cells 32 This Pap test has been evalu ated with computer assisted technology. Parabasal cells in smears that lack maturation due to atrophy or other hormonal reasons cannot be differentiated from transformation zone cells. Accordingly, presence or absence of endocervical or transformation zone components cannot be reported in this patient. 33 Reference Range: ZL, CT(ASCP) CT screening location: [facility] [place], [address] [place] [address] . 34 EXPLANATORY NOTE: The Pap is a screening test for cervical cancer. It is not a diagnostic test and is subject to false negative and false positive results. It is most reliable when a satisfactory sample, regularly obtained, is submitted with relevant clinical findings and history, and when the Pap result is evaluated along with historic and current clinical information. 35 This test was performed usin the APTIMA HPV Assay ([employer] This assay detects E6/E7 viral messenger RNA (mRNA) from 14 high-risk HPV types (16,18,31,33,35,39,45,51,52,56,58,59,66,68). The analytical performance characteristics of this assay have been determined by [facility]. The modifications have not been cleared or approved by the FDA. This assay has been validated pursuant to the CLIA regulations and is used for clinical purposes. NO COLLECTION DATE RECEIVED. WE HAVE USED THE DATE THE SPECIMEN WAS RECEIVED BY THIS LABORATORY THE COLLECTION DATE. IF THIS IS INCORRECT, PLEASE CONTACT CLIENT SERVICES. PHONE NUMBER: [phone] Procedures Description No Information Available Medical Devices Description No Information Available Encounters Type Date Location Provider Dx Diagnosis Office Visit 04/25/2020 8:20a [facility] Mendez Calix.OGayathri R19.7 Diarrhea, unspecified K64.9 Unspecified hemorrhoids Office Visit 02/16/2020 1:30p [facility] Mendez Calix.OGayathri R19.7 Diarrhea, unspecified K64.9 Unspecified hemorrhoids Office Visit 01/04/2020 1:00p [facility] Mendez Calix.OGayathri Z01.419 Encntr for test rack operator exam (general ) (routine) w/o abn findings Assessments Date Code Description Provider 04/25/2020 R19.7 Diarrhea, unspecified Mendez Covarrubias.OGayathri 04/25/2020 K64.9 Unspecified hemorrhoids Mendez Kennedy.OGayathri 02/16/2020 R19.7 Diarrhea, unspecified Thais Smith D.OGayathri 02/16/2020 K64.9 Unspecified hemorrhoids Thais Fontaine D.O. [...] has been negative. Please evalaute and treat. Patient Notified 05/23/2020 [facility] [address] [place] [address] [phone]
--- OUTSIDE RECORDS SUMMARY | 2020-06-06 11:31 | CCD | Continuity of Care Document ---
Author Author Dorita CARREON D.O. 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 AUTM Francy Bruce M.D. AUTM [phone] Heaven Cardona M.D. AUTM [phone] Problems Description No Information Available Social History [...] F O2 % BldC Oximetry 97 % [place] Body Weight 115 lb 02/16/2020 1:42pm BP Systolic 110 mmHg BP Diastolic 68 mmHg Height 63.0 inches 5'3" Weight 105.00 lb BMI (Body Mass Index) 18.6 kg/m2 Heart Rate 66 /min Respiratory Rate 18 /min Body Temperature 98.5 F O2 % BldC Oximetry 99 % [place] Body Weight 115 lb Results Test Acquired Date Facility Test Result H/L Range Note Lyme Disease SCRN With Confirm 05/24/[address] [id number] [phone] Lyme Disease IgG/IgM Antibodie <0.91 ISR Normal 0 .00-0.90 1 Lyme Disease IgM Ab Quantitati <0.80 index Normal 0.00-0.79 2 CBC With Differential 05/16/2020 [facility] Outpatient Lesia knowles (Registration) [address] [place] [address] [phone] White Blood Count 5.3 10 Normal 4.0-10.0 [...] 36.0-66.0 Lymph % 30.1 % Normal 24.0-44.0 [place] % 7.7 % High 0.0-5.0 Eos % 2.3 % Normal 0.0-3.0 Baso % 1.7 % High 0.0-1.0 Immature Granulocyte % 0.4 % Normal 0-3.0 Nucleated Red Blood Cell % 0.0 % Normal 0-0 Neutrophils # 3.1 10 Normal 1.5-8.5 Lymph # 1.6 10 Normal 1.5-5.0 [place] # 0.4 10 Normal 0.0-0.8 Eos # 0.1 10 Normal 0.0-0.5 Baso # 0.1 10 Normal 0.0-0.2 Liver Profile 05/16/2020 [facility] Outpatient Testi ng (Registration) [address] [place] [phone] Ast/Sgot 15 U/L Normal 7-37 Alt/SGPT 19 U/L Normal 12-78 Alkaline Phosphatase 41 U/L Low 45-117 Bilirubin,Total 0.5 mg/dL Normal 0.2-1.0 Bilirubin,Direct < 0.1 mg/dL Normal 0.0-0.2 Total Protein 6.7 GM/DL Normal 6.4-8.2 Albumin 4.2 GM/DL Normal 3.2-5.2 Albumin/Globulin Ratio 1.7 Normal 1.2-2.2 Basic Metabolic Profile 05/16/2020 [facility] Outpatient T esting (Registration) [address] [place] [address] [phone] Glucose, Fasting 103 mg/dL High 70-100 Blood [...] Normal 8.5-10.1 Total Iron Binding Capacit 05/16/2020 [facility] Outpatien t Testing (Registration) [address] [place] [phone] Iron (Fe) 108 g/dL Normal 50-170 Total Iron Binding Capacity 321 g/dL Normal 250-450 Percent Saturation 33.6 % Normal 13.2-45.0 Laboratory test finding 05/16/2020 [facility] Outpatient T esting (Registration) [address] [place] [address] [phone] Immunoglobulin A 164.0 mg/dL Normal 70-400 Thyroid Stimulating Hormone 0.948 uIU/ML Normal 0.358-3.740 Ferritin 63 NG/ML Normal 8-252 Laboratory test finding 05/16/2020 [facility] Outpatient T esting (Registration) [address] [place] [phone] [phone] Tissue Transglutaminase IgG <2 U/mL Normal 0-5 4 Tissue Transglutaminase IgA <2 U/mL Normal 0-3 5 Endomysial Joselyn IgA Negative Normal Negative 6 Endomysial Joselyn IgG SEE SEPARATE REP <SEE NOTE> Normal <1:10 7 Coronavirus 2019 Nasopharygeal 04/12/2020 [facility] Outpa tient Testing (Registration) [address] [place] [address] [phone] Coronavirus 2019 Nasopharygeal This nucleic aci <SEE N OTE> 8 G I Profile Stool PCR So 02/17/2020 [facility] Outpatient Testing (Registration) [address] [place] [address] [phone] Campylobacter Not Detected 9 C.difficile A/B Not [...] DNR Normal Comment: (SEE NOTE) Normal 38 Gravity Prospector: (SEE NOTE) Normal See Note: 39 Review Gravity Prospector: DNR Normal Pathologist: DNR Normal Comment (SEE NOTE) 40 HPV mRNA E6/E7 Not Detected Normal Not Detected 41 Laboratory test finding 01/05/2020 [facility] Enhanced PDF Report [id number] SEE IMAGE 1 Negative <0.91 Equivocal 0.91 - 1.09 Positive >1.09 2 Negative <0.80 Equivocal 0.80 - 1.19 Positive >1.19 . IgM levels may peak at 3-6 weeks post infection, then gradually decline. Performed at: [address] [id number] Blade Aligner: Eliana Reis MD, Phone: [phone] 3 Units are mL/min/1.73 m2 Chronic Kidney Disease Staging per NKF: Stage I & II GFR >=60 Normal to Mildly Decreased Stage III GFR 30-59 Moderately Decreased Stage IV GFR 15-29 Severely Decreased Stage V GFR <15 Very Little GFR Left ESRD GFR <15 on LINE ASSEMBLER 4 Negative 0 - 5 Weak Positive 6 - 9 Positive >9 5 Negative 0 - 3 Weak Positive 4 - 10 Positive >10 . Tissue Transglutaminase (tTG) has been identified as the endomysial antigen. Studies have demonstr- ated that endomysial IgA antibodies have over 99% specificity for gluten sensitive enteropathy. 6 Performed at: [address] [id number] Blade Aligner: Eliana Reis MD, Phone: [phone] 7 SEE SEPARATE REPORT Testing performed at reference lab . Report copy to follow on a separate form. 05/25/20 REF LAB#:[id number] 8 This nucleic acid amplificat ion test was developed and its performance characteristics determined by [employer]. Nucleic acid amplification tests include PCR and [...] detected) result in this assay. Performed at: [email or web address] [address], [place], [place] [id number] Blade Aligner: Afua Justin PhD, Phone: [phone] Not Detected 9 10 11 12 13 14 15 16 17 18 19 20 21 22 23 24 25 26 27 28 29 30 Performed at: [address] [id number] Blade Aligner: Kevan Figueroa MD, Phone: [phone] Not Detected 31 This order for age-based cer vical cancer and STI screening follows ACOG guidelines(PB 168, 140, FWL100). See individual assays for performing site location. [...] Reference Range: ZL, CT(ASCP) CT screening location: [facility] [place], [address] [place] [address], [place] [address] . 40 EXPLANATORY NOTE: The Pap is [...] performed ravi gomez the APTIMA HPV Assay ([employer] This assay detects E6/E7 viral messenger RNA (mRNA) from 14 high-risk HPV types (16,18,31,33,35,39,45,51,52,56,58,59,66,68). The analytical performance characteristics of this assay have been determined by [employer]. The modifications have not been cleared or approved by the FDA. This assay has been validated pursuant to the CLIA regulations and is used for clinical purposes. NO COLLECTION DATE RECEIVED. WE HAVE USED THE DATE THE SPECIMEN WAS RECEIVED BY THIS LABORATORY THE COLLECTION DATE. IF THIS IS INCORRECT, PLEASE CONTACT CLIENT SERVICES. PHONE NUMBER: [phone] Procedures Description No Information Available Medical Devices Description No Information Available Encounters Type Date Location Provider Dx Diagnosis Office Visit 04/25/2020 8:20a Family [facility] Mendez Calix.OGayathri R19.7 Diarrhea, unspecified K64.9 Unspecified hemorrhoids Office Visit 02/16/2020 1:30p Family [facility] Mendez Calix.O. 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 Closed 05/23/2020 [facility] [address] [place], [place] [id number] [phone]
--- OUTSIDE RECORDS SUMMARY | 2020-06-06 11:32 | CCD | Continuity of Care Document ---
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 AUTM [phone] Francy Bruce M.D. AUTM [phone] Problems Description No Information Available Social History Type Date Description Comments Sex Unknown ETOH Use Drinks 1 Alcoholic Beverage Per Day Tobacco Use Start: Unknown Patient has never smoked Recreational Drug Use Denies Drug Use Smoking Status Reviewed: 02/17/20 Patient has never smoked Exercise Type/Frequency Yoga [...] daily as needed 30gm K64.9 Thais Carreon D.OGayathri 02/16/2020 Hydrocortisone Acetate 25mg Suppos itory insert one suppository daily as needed 12units K64.9 Ruthie ValeOGayathri 02/16/2020 Fluticasone Propionate 50mcg/Act Suspension 2 spray each nostril once a day 16gm R42 Ruthie ValeOGayathri 06/22/2019 Immunizations Description No Information Available Vital Signs Date Vital Result Comment 02/16/2020 1:42pm BP Systolic 110 mmHg BP Diastolic 68 mmHg Height 63.0 inches 5'3" Weight 105.00 lb BMI (Body Mass Index) 18.6 kg/m2 Heart Rate 66 /min Respiratory Rate 18 /min Body Temperature 98.5 F O2 % BldC Oximetry 99 % [place] Body Weight 115 lb 01/04/2020 1:11pm BP Systolic 110 mmHg BP Diastolic 78 mmHg Height 63.0 inches 5'3" Weight 103.06 lb BMI (Body Mass Index) 18.3 kg/m2 Heart Rate 77 /min Respiratory Rate 20 /min Body Temperature 98.2 F O2 % BldC Oximetry 99 % [place] Body Weight 115 lb Results Test Acquired Date Facility Test Result H/L Range Note Coronavirus 2019 Nasopharygeal 04/12/2020 [facility] Outpa tient Testing (Registration) [address] [place] [address] [phone] Coronavirus 2019 Nasopharygeal This nucleic aci <SEE N OTE> 1 G I Profile Stool PCR So 02/17/2020 [facility] Outpatient Testing (Registration) [address] [place] [address] [phone] Campylobacter Not Detected 2 C.difficile A/B Not [...] DNR Normal Comment: (SEE NOTE) Normal 31 Manager Universal: (SEE NOTE) Normal See Note: 32 Review Manager Universal: DNR Normal Pathologist: DNR Normal Comment (SEE NOTE) 33 HPV mRNA E6/E7 Not Detected Normal Not Detected 34 Laboratory test finding 01/05/2020 [facility] Enhanced PDF Report [id number] SEE IMAGE 1 This nucleic acid amplificat ion test was developed and its performance characteristics determined by [facility].. Nucleic acid amplification tests include PCR and [...] detected) result in this assay. Performed at: [facility] [address] [facility], [place], [place] [id number] Director Of Resource Development: Afua Justin PhD, Phone: [phone] Not Detected 2 3 4 5 6 7 8 9 10 11 12 13 14 15 16 17 18 19 20 21 22 23 Performed at: [address] [id number] Director Of Resource Development: Kevan Figueroa MD, Phone: [phone] Not Detected 24 This order for age-based cer vical cancer and STI screening follows ACOG guidelines(PB 168, 140, ZLZ674). See individual assays for performing site location. [...] Reference Range: ZL, CT(ASCP) CT screening location: [facility], [address] [place] [address], [place] [address] . 33 EXPLANATORY NOTE: The Pap is [...] performed usin g the APTIMA HPV Assay ([employer] This assay detects E6/E7 viral messenger RNA (mRNA) from 14 high-risk HPV types (16,18,31,33,35,39,45,51,52,56,58,59,66,68). The analytical performance characteristics of this assay have been determined by [employer] [facility] [employer]. The modifications have not been cleared or approved by the FDA. This assay has been validated pursuant to the CLIA regulations and is used for clinical purposes. NO COLLECTION DATE RECEIVED. WE HAVE USED THE DATE THE SPECIMEN WAS RECEIVED BY THIS LABORATORY THE COLLECTION DATE. IF THIS IS INCORRECT, PLEASE CONTACT CLIENT SERVICES. PHONE NUMBER: [phone] Procedures Description No Information Available Medical Devices Description No Information Available Encounters Type Date Location Provider Dx Diagnosis Office Visit 02/16/2020 1:30p [facility] Ruthie BrownOGayathri R19.7 Diarrhea, unspecified K64.9 Unspecified hemorrhoids Office Visit 01/04/2020 1:00p [facility] Xu Carreon D.O. 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 02/16/2020 K64.9 Unspecified hemorrhoids Thais Fontaine D.O. 01/04/2020 Z01.419 Encounter for gyneco logical examination (general) (routine) without abnormal findings Thais Carreon D.O. Plan of Treatment No Information Available Functional Status Description No Information Available Mental Status Description No Information Available Referrals Description No Information Available
--- OUTSIDE RECORDS SUMMARY | 2020-06-06 11:32 | CCD ---
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 Worker Name Role Phone Annie Haas MD Unavailable Unavailable Annie Haas MD Unavailable Unavailable Annie Haas MD Unavailable Unavailable Annie Haas MD Unavailable Unavailable Annie Haas MD Unavailable Unavailable Annie Haas MD Unavailable Unavailable Annie Haas MD Unavailable Unavailable Annie Haas MD Unavailable Unavailable Annie Haas MD Unavailable Unavailable Annie Haas MD Unavailable Unavailable Annie Haas MD Unavailable Unavailable Annie Haas MD Unavailable Unavailable Annie Haas MD Unavailable Unavailable Annie Haas MD Unavailable Unavailable Annie Haas MD Unavailable Unavailable Annie Haas MD Unavailable Unavailable Annie Haas MD Unavailable Unavailable Annie Haas MD Unavailable Unavailable Annie Haas MD Unavailable Unavailable Annie Haas MD Unavailable Unavailable Annie Haas MD Unavailable Unavailable Annie Haas MD Unavailable Unavailable Annie Haas MD Unavailable Unavailable Annie Haas MD Unavailable Unavailable Annie Haas MD Unavailable Unavailable Annie Haas MD Unavailable Unavailable Annie Haas MD Unavailable Unavailable Annie Haas MD Unavailable Unavailable Annie Haas MD Unavailable Unavailable Annie Haas MD Unavailable Unavailable Waldo S Fredy FLEMING Unavailable Unavailable Waldo, S Fredy FLEMING Unavailable Unavailable Waldo, S Fredy FLEMING Unavailable Unavailable Waldo, S Fredy FLEMING Unavailable Unavailable Waldo, S Fredy MD Unavailable Unavailable Waldo, S Fredy MD Unavailable Unavailable Waldo, S Fredy MD Unavailable Unavailable Waldo, S Fredy MD Unavailable Unavailable Waldo, S Fredy MD Unavailable Unavailable Waldo, S Fredy MD Unavailable Unavailable Waldo, S Fredy MD Unavailable Unavailable Waldo, S Fredy MD Unavailable Unavailable Waldo, S Fredy MD Unavailable Unavailable Waldo, S Fredy MD Unavailable Unavailable Waldo, S Fredy MD Unavailable Unavailable Waldo, S Fredy MD Unavailable Unavailable Waldo, S Fredy FLEMING Unavailable Unavailable Waldo, S Fredy FLEMING Unavailable Unavailable O'lindy, A Chester PA Unavailable Unavailable O'lindy, A Chester PA Unavailable Unavailable O'lindy, A Chester PA Unavailable Unavailable O'lindy, A Chester PA Unavailable Unavailable O'lindy, A Chester PA Unavailable Unavailable O'lindy, A Chester PA Unavailable Unavailable O'lindy, A Chester PA Unavailable Unavailable O'lindy, A Chester PA Unavailable Unavailable O'lindy, A Chester PA Unavailable Unavailable O'lindy, A Chester PA Unavailable Unavailable O'lindy, A Chester PA Unavailable Unavailable O'lindy, A Chester PA Unavailable Unavailable O'lindy, A Chester PA Unavailable Unavailable O'lindy, A Chester PA Unavailable Unavailable O'lindy, A Chester PA Unavailable Unavailable O'lindy, A Chester PA Unavailable Unavailable O'lindy, A Chester PA Unavailable Unavailable O'lindy, A Chester PA Unavailable Unavailable O'lindy, A Chester PA Unavailable Unavailable O'lindy, A Chester PA Unavailable Unavailable O'lindy, A Chester PA Unavailable Unavailable O'lindy, A Chester PA Unavailable Unavailable O'lindy, A Chester PA Unavailable Unavailable O'lindy, A Chester PA Unavailable Unavailable O'lindy, A Chester PA Unavailable Unavailable O'lindy, A Chester PA Unavailable Unavailable O'lindy, A Chester PA Unavailable Unavailable O'lindy, A Chester PA Unavailable Unavailable O'lindy, A Chester PA Unavailable Unavailable O'lindy, A Chester PA Unavailable Unavailable O'lindy, A Chester PA Unavailable Unavailable O'lindy, A Chester PA Unavailable Unavailable DEEPALI-MARY, SARAI DO Unavailable Unavailable DEEPALI-MARY, SARAI DO Unavailable Unavailable DEEPALI-MARY, SARAI DO Unavailable Unavailable DEEPALI-MARY, SARAI DO Unavailable Unavailable DEEPALI-MARY, SARAI DO Unavailable Unavailable DEEPALI-MARY, SARAI DO Unavailable Unavailable DEEPALI-MARY, SARAI DO Unavailable Unavailable DEEPALI-MARY, SARAI DO Unavailable Unavailable DEEPALI-MARY, SARAI DO Unavailable Unavailable DEEPALI-MARY, SARAI DO Unavailable Unavailable DEEPALI-MARY, SARAI DO Unavailable Unavailable DEEPALI-MARY, SARAI DO Unavailable Unavailable DEEPALI-MARY, SARAI DO Unavailable Unavailable DEEPALI-MARY, SARAI DO Unavailable Unavailable DEEPALI-MARY, SARAI DO Unavailable Unavailable DEEPALI-MARY, SARAI DO Unavailable Unavailable DEEPALI-MARY, SARAI DO Unavailable Unavailable DEEPALI-MARY, SARAI DO Unavailable Unavailable DEEPALI-MARY, SARAI DO Unavailable Unavailable DEEPALI-MARY, SARAI DO Unavailable Unavailable DEEPALI-MARY, SARAI DO Unavailable Unavailable DEEPALI-MARY, SARAI DO Unavailable Unavailable DEEPALI-MARY, SARAI DO Unavailable Unavailable DEEPALI-MARY, SARAI DO Unavailable Unavailable DEEPALI-MARY, SARAI DO Unavailable Unavailable DEEPALI-MARY, SARAI DO Unavailable Unavailable DEEPALI-MARY, SARAI DO Unavailable Unavailable DEEPALI-MARY, SARAI DO Unavailable Unavailable DEEPALI-MARY, SARAI DO Unavailable Unavailable DEEPALI-MARY, SARAI DO Unavailable Unavailable DEEPALI-MARY, SARAI DO Unavailable Unavailable DEEPALI-MARY, SARAI DO Unavailable Unavailable DEEPALI-MARY, SARAI DO Unavailable Unavailable DEEPALI-MARY, SARAI DO Unavailable Unavailable DEEPALI-MARY, SARAI DO Unavailable Unavailable DEEPALI-MARY, SARAI DO Unavailable Unavailable DEEPALI-MARY, SARAI DO Unavailable Unavailable DEEPALI-MARY, SARAI DO Unavailable Unavailable DEEPALI-MARY, SARAI DO Unavailable Unavailable DEEPALI-MARY, SARAI DO Unavailable Unavailable DEEPALI-MARY, SARAI DO Unavailable Unavailable DEEPALI-MARY, SARAI DO Unavailable Unavailable DEEPALI-MARY, SARAI DO Unavailable Unavailable DEEPALI-MARY, SARAI DO Unavailable Unavailable DEEPALI-MARY, SARAI DO Unavailable Unavailable DEEPALI-MARY, SARAI DO Unavailable Unavailable DEEPALI-MARY, SARAI DO Unavailable Unavailable DEEPALI-MARY, SARAI DO Unavailable Unavailable DEEPALI-MARY, SARAI DO Unavailable Unavailable DEEPALI-MARY, SARAI DO Unavailable Unavailable DEEPALI-MARY, SARAI DO Unavailable Unavailable DEEPALI-MARY, SARAI DO Unavailable Unavailable DEEPALI-MARY, SARAI DO Unavailable Unavailable DEEPALI-MARY, SARAI DO Unavailable Unavailable DEEPALI-MARY, SARAI DO Unavailable Unavailable DEEPALI-MARY, SARAI DO Unavailable Unavailable DEEPALI-MARY, SARAI DO Unavailable Unavailable DEEPALI-MARY, SARAI DO Unavailable Unavailable DEEPALI-MARY, SARAI DO Unavailable Unavailable DEEPALI-MARY, SARAI DO Unavailable Unavailable DEEPALI-MARY, SARAI DO Unavailable Unavailable DEEPALI-MARY, SARAI DO Unavailable Unavailable DEEPALI-MARY, SARAI DO Unavailable Unavailable DEEPALI-MARY, SARAI DO Unavailable Unavailable DEEPALI-MARY, SARAI DO Unavailable Unavailable DEEPALI-MARY, SARAI DO Unavailable Unavailable DEEPALI-MARY, SARAI DO Unavailable Unavailable DEEPALI-MARY, SARAI DO Unavailable Unavailable DEEPALI-MARY, SARAI DO Unavailable Unavailable DEEPALI-MARY, SARAI DO Unavailable Unavailable DEEPALI-MARY, SARAI DO Unavailable Unavailable DEEPALI-MARY, SARAI DO Unavailable Unavailable DEEPALI-MARY, SARAI DO Unavailable Unavailable DEEPALI-MARY, SARAI DO Unavailable Unavailable DEEPALI-MARY, SARAI DO Unavailable Unavailable DEEPALI-MARY, SARAI DO Unavailable Unavailable DEEPALI-MARY, SARAI DO Unavailable Unavailable DEEPALI-MARY, SARAI DO Unavailable Unavailable DEEPALI-MARY, SARAI DO Unavailable Unavailable DEEPALI-MARY, SARAI DO Unavailable Unavailable DEEPALI-MARY, SARAI DO Unavailable Unavailable DEEPALI-MARY, SARAI DO Unavailable Unavailable Mendez Bernal MD Unavailable Unavailable Mendez Bernal MD Unavailable Unavailable Mendez Bernal MD Unavailable Unavailable Vaneenenaam, Mendez Olivares MD Unavailable Unavailable Vaneenenaam, Mendez Olivares MD Unavailable Unavailable Vaneenenaam, Mendez Olivares MD Unavailable Unavailable Vaneenenaam, Mendez Olivares MD Unavailable Unavailable Vaneenenaam, Mendez Olivares MD Unavailable Unavailable Vaneenenaam, Mendez Olivares MD Unavailable Unavailable Vaneenenaam, Mendez Olivares MD Unavailable Unavailable Vaneenenaam, Mendez Olivares MD Unavailable Unavailable Vaneenenaam, Mendez Olivares MD Unavailable Unavailable Vaneenenaam, Mendez Olivares MD Unavailable Unavailable Vaneenenaam, Mendez Olivares MD Unavailable Unavailable Vaneenenaam, Mendez Olivares MD Unavailable Unavailable Vaneenenaam, Mendez Olivares MD Unavailable Unavailable Vaneenenaam, Mendez Olivares MD Unavailable Unavailable Vaneenenaam, Mendez Olivares MD Unavailable Unavailable Vaneenenaam, Mendez Olivares MD Unavailable Unavailable Vaneenenaam, Mendez Olivares MD Unavailable Unavailable Vaneenenaam, Mendez Olivares MD Unavailable Unavailable Vaneenenaam, Mendez Olivares MD Unavailable Unavailable Vaneenjeanineam, Mendez Olivares MD Unavailable Unavailable Vaneenenaam, Mendez Olivares MD Unavailable Unavailable Vaneenenaam, Mendez Olivares MD Unavailable Unavailable Vaneenenaam, Mendez Olivares MD Unavailable Unavailable Vaneenenaam, Mendez Olivares MD Unavailable Unavailable Vaneenenaam, Mendez Olivares MD Unavailable Unavailable Vaneenenaam, Mendez Olivares MD Unavailable Unavailable Vaneenenaam, Mendez Olivares MD Unavailable Unavailable Vaneenenaam, Mendez Olivares MD Unavailable Unavailable Vaneenenaam, Mendez Olivares MD Unavailable Unavailable Vaneenenaam, Mendez Olivares MD Unavailable Unavailable Vaneenenaam, Mendez Olivares MD Unavailable Unavailable Vaneenjeanineam, Mendez Olivares MD Unavailable Unavailable Vaneenenaam, Mendez Olivares MD Unavailable Unavailable Vaneenjeanineam, Mendez Olivares MD Unavailable Unavailable Vaneenenaam, Mendez Olivares MD Unavailable Unavailable Vaneenenaam, Mendez Olivares MD Unavailable Unavailable Vaneenenaam, Mendez Olivares MD Unavailable Unavailable Vaneenenaam, Mendez Olivares MD Unavailable Unavailable Vaneenenaam, Mendez Olivares MD Unavailable Unavailable DEEPALI-MARY, SARAI DO Unavailable Unavailable DEEPALI-MARY, SARAI DO Unavailable Unavailable DEEPALI-MARY, SARAI DO Unavailable Unavailable DEEPALI-MARY, SARAI DO Unavailable Unavailable DEEPALI-MARY, SARAI DO Unavailable Unavailable DEEPALI-MARY, SARAI DO Unavailable Unavailable DEEPALI-MARY, SARAI DO Unavailable Unavailable DEEPALI-MARY, SARAI DO Unavailable Unavailable DEEPALI-MARY, SARAI DO Unavailable Unavailable DEEPALI-MARY, SARAI DO Unavailable Unavailable DEEPALI-MARY, SARAI DO Unavailable Unavailable DEEPALI-MARY, SARAI DO Unavailable Unavailable DEEPALI-MARY, SARAI DO Unavailable Unavailable DEEPALI-MARY, SARAI DO Unavailable Unavailable DEEPALI-MARY, SARAI DO Unavailable Unavailable DEEPALI-MARY, SARAI DO Unavailable Unavailable DEEPALI-MARY, SARAI DO Unavailable Unavailable DEEPALI-MARY, SARAI DO Unavailable Unavailable DEEPALI-MARY, SARAI DO Unavailable Unavailable DEEPALI-MARY, SARAI DO Unavailable Unavailable DEEPALI-MARY, SARAI DO Unavailable Unavailable DEEPALI-MARY, SARAI DO Unavailable Unavailable DEEPALI-MARY, SARAI DO Unavailable Unavailable DEEPALI-MARY, SARAI DO Unavailable Unavailable DEEPALI-MARY, SARAI DO Unavailable Unavailable DEEPALI-MARY, SARAI DO Unavailable Unavailable DEEPALI-MARY, SARAI DO Unavailable Unavailable DEEPALI-MARY, SARAI DO Unavailable Unavailable DEEPALI-MARY, SARAI DO Unavailable Unavailable DEEPALI-MARY, SARAI DO Unavailable Unavailable DEEPALI-MARY, SARAI DO Unavailable Unavailable DEEPALI-MARY, SARAI DO Unavailable Unavailable DEEPALI-MARY, SARAI DO Unavailable Unavailable DEEPALI-MARY, SARAI DO Unavailable Unavailable DEEPALI-MARY, SARAI DO Unavailable Unavailable DEEPALI-MARY, SARAI DO Unavailable Unavailable DEEPALI-MARY, SARAI DO Unavailable Unavailable DEEPALI-MARY, SARAI DO Unavailable Unavailable DEEPALI-MARY, SARAI DO Unavailable Unavailable DEEPALI-MARY, SARAI DO Unavailable Unavailable DEEPALI-MARY, SARAI DO Unavailable Unavailable DEEPALI-MARY, SARAI DO Unavailable Unavailable DEEPALI-MARY, SARAI DO Unavailable Unavailable DEEPALI-MARY, SARAI DO Unavailable Unavailable DEEPALI-MARY, SARAI DO Unavailable Unavailable DEEPALI-MARY, SARAI DO Unavailable Unavailable DEEPALI-MARY, SARAI DO Unavailable Unavailable DEEPALI-MARY, SARAI DO Unavailable Unavailable DEEPALI-MARY, SARAI DO Unavailable Unavailable DEEPALI-MARY, SARAI DO Unavailable Unavailable DEEPALI-MARY, SARAI DO Unavailable Unavailable DEEPALI-MARY, SARAI DO Unavailable Unavailable DEEPALI-MARY, SARAI DO Unavailable Unavailable DEEPALI-MARY, SARAI DO Unavailable Unavailable DEEPALI-MARY, SARAI DO Unavailable Unavailable DEEPALI-MARY, SARAI DO Unavailable Unavailable DEEPALI-MARY, SARAI DO Unavailable Unavailable DEEPALI-MARY, SARAI DO Unavailable Unavailable DEEPALI-MARY, SARAI DO Unavailable Unavailable DEEPALI-MARY, SARAI DO Unavailable Unavailable DEEPALI-MARY, SARAI DO Unavailable Unavailable DEEPALI-MARY, SARAI DO Unavailable Unavailable DEEPALI-MARY, SARAI DO Unavailable Unavailable DEEPALI-MARY, SARAI DO Unavailable Unavailable DEEPALI-MARY, SARAI DO Unavailable Unavailable DEEPALI-MARY, SARAI DO Unavailable Unavailable DEEPALI-MARY, SARAI DO Unavailable Unavailable DEEPALI-MARY, SARAI DO Unavailable Unavailable DEEPALI-MARY, SARAI DO Unavailable Unavailable DEEPALI-MARY, SARAI DO Unavailable Unavailable DEEPALI-MARY, SARAI DO Unavailable Unavailable DEEPALI-MARY, SARAI DO Unavailable Unavailable DEEPALI-MARY, SARAI DO Unavailable Unavailable DEEPALI-MARY, SARAI DO Unavailable Unavailable DEEPALI-MARY, SARAI DO Unavailable Unavailable DEEPALI-MARY, SARAI DO Unavailable Unavailable DEEPALI-MARY, SARAI DO Unavailable Unavailable DEEPALI-MARY, SARAI DO Unavailable Unavailable DEEPALI-MARY, SARAI DO Unavailable Unavailable DEEPALI-MARY, SARAI DO Unavailable Unavailable DEEPALI-MARY, SARAI DO Unavailable Unavailable DEEPALI-MARY, SARAI DO Unavailable Unavailable STEPHANIE (ANA), Jacqueline GRACE MD Unavailable Unavailab le STEPHANIE (ANA), Jacqueline GRACE MD Unavailable Unavailab le STEPHANIE (ANA), Jacqueline GRACE MD Unavailable Unavailab le STEPHANIE (ANA), Jacqueline GRACE MD Unavailable Unavailab le STEPHANIE (ANA), Jacqueline GRACE MD Unavailable Unavailab le STEPHANIE (ANA), Jacqueline GRACE MD Unavailable Unavailab le STEPHANIE (ANA), Jacqueline GRACE MD Unavailable Unavailab le STEPHANIE (ANA), Jacqueline GRACE MD Unavailable Unavailab le STEPHANIE (ANA), Jacqueline GRACE MD Unavailable Unavailab le STEPHANIE (ANA), Jacqueline GRACE MD Unavailable Unavailab le STEPHANIE (ANA), Jacqueline GRACE MD Unavailable Unavailab le STEPHANIE (ANA), Jacqueline GRACE MD Unavailable Unavailab le STEPHANIE (ANA), Jacqueline GRACE MD Unavailable Unavailab le STEPHANIE (ANA), Jacqueline GRACE MD Unavailable Unavailab le STEPHANIE (ANA), Jacqueline GRACE MD Unavailable Unavailab le STEPHANIE (ANA), Jacqueline GRACE MD Unavailable Unavailab le STEPHANIE (ANA), Jacqueline GRACE MD Unavailable Unavailab le STEPHANIE (ANA), Jacqueline GRACE MD Unavailable Unavailab le STEPHANIE (ANA), Jacqueline GRACE MD Unavailable Unavailab le STEPHANIE (ANA), Jacqueline GRACE MD Unavailable Unavailab le STEPHANIE (ANA), Jacqueline GRACE MD Unavailable Unavailab le STEPHANIE (ANA), Jacqueline GRACE MD Unavailable Unavailab le STEPHANIE (ANA), Jacqueline GRACE MD Unavailable Unavailab le STEPHANIE (ANA), Jacqueline GRACE MD Unavailable Unavailab le STEPHANIE (ANA), Jacqueline GRACE MD Unavailable Unavailab le STEPHANIE (ANA), Jacqueline GRACE MD Unavailable Unavailab le STEPHANIE (ANA), Jacqueline GRACE MD Unavailable Unavailab le STEPHANIE (ANA), Jacqueline GRACE MD Unavailable Unavailab le STEPHANIE (ANA), Jacqueline GRACE MD Unavailable Unavailab le STEPHANIE (ANA), Jacqueline GRACE MD Unavailable Unavailab le STEPHANIE (ANA), Jacqueline GRACE MD Unavailable Unavailab le STEPHANIE (ANA), Jacqueline GRACE MD Unavailable Unavailab le STEPHANIE (ANA), Jacqueline GRACE MD Unavailable Unavailab le STEPHANIE (ANA), Jacqueline GRACE MD Unavailable Unavailab le STEPHANIE (ANA), Jacqueline GRACE MD Unavailable Unavailab le STEPHANIE (ANA), Jacqueline GRACE MD Unavailable Unavailab le STEPHANIE (ANA), Jacqueline GRACE MD Unavailable Unavailab le STEPHANIE (ANA), Jacqueline GRACE MD Unavailable Unavailab le STEPHANIE (ANA), Jacqueline GRACE MD Unavailable Unavailab le STEPHANIE (ANA), Jacqueline GRACE MD Unavailable Unavailab le STEPHANIE (ANA), Jacqueline GRACE MD Unavailable Unavailab le STEPHANIE (ANA), Jacqueline GRACE MD Unavailable Unavailab le STEPHANIE (ANA), Jacqueline GRACE MD Unavailable Unavailab le STEPHANIE (ANA), Jacqueline GRACE MD Unavailable Unavailab le STEPHANIE (ANA), Jacqueline GRACE MD Unavailable Unavailab le STEPHANIE (ANA), Jacqueline GRACE MD Unavailable Unavailab le STEPHANIE (ANA), Jacqueline GRACE MD Unavailable Unavailab le STEPHANIE (ANA), Jacqueline GRACE MD Unavailable Unavailab le STEPHANIE (ANA), Jacqueline GRACE MD Unavailable Unavailab le STEPHANIE (ANA), Jacqueline GRACE MD Unavailable Unavailab le STEPHANIE (ANA), Jacqueline GRACE MD Unavailable Unavailab le STEPHANIE (ANA), Jacqueline GRACE MD Unavailable Unavailab le STEPHANIE (ANA), Jacqueline GRACE MD Unavailable Unavailab le STEPHANIE (ANA), Jacqueline GRACE MD Unavailable Unavailab le STEPHANIE (ANA), Jacqueline GRACE MD Unavailable Unavailab le STEPHANIE (NAA), Jacqueline GRACE MD Unavailable Unavailab le STEPHANIE (ANA), Jacqueline GRACE MD Unavailable Unavailab le STEPHANIE (ANA), Jacqueline GRACE MD Unavailable Unavailab le STEPHANIE (ANA), Jacqueline GRACE MD Unavailable Unavailab le STEPHANIE (AAN), Jacqueline GRACE MD Unavailable Unavailab le STEPHANIE (ANA), Jacqueline GRACE MD Unavailable Unavailab le STEPHANIE (ANA), Jacqueline GRACE MD Unavailable Unavailab le STEPHANIE (ANA), Jacqueline GRACE MD Unavailable Unavailab le STEPHANIE (ANA), Jacqueline GRACE MD Unavailable Unavailab le STEPHANIE (ANA), Jacqueline GRACE MD Unavailable Unavailab le STEPHANIE (ANA), Jacqueline GRACE MD Unavailable Unavailab le STEPHANIE (ANA), Jacqueline GRACE MD Unavailable Unavailab le STEPHANIE (ANA), Jacqueline GRACE MD Unavailable Unavailab le STEPHANIE (ANA), Jacqueline GRACE MD Unavailable Unavailab le STEPHANIE (ANA), Jacqueline GRACE MD Unavailable Unavailab le STEPHANIE (ANA), Jacqueline GRACE MD Unavailable Unavailab le STEPHANIE (ANA), Jaqcueline GRACE MD Unavailable Unavailab le STEPHANIE (ANA), Jacqueline GRACE MD Unavailable Unavailab le STEPHANIE (ANA), Jacqueline GRACE MD Unavailable Unavailab le STEPHANIE (ANA), Jacqueline GRACE MD Unavailable Unavailab le STEPHANIE (ANA), Jacqueline GRACE MD Unavailable Unavailab le STEPHANIE (ANA), Jacqueline GRACE MD Unavailable Unavailab le STEPHANIE (ANA), Jacqueline GRACE MD Unavailable Unavailab le STEPHANIE (ANA), Jacqueline GRACE MD Unavailable Unavailab le STEPHANIE (ANA), Jacqueline GRACE MD Unavailable Unavailab le STEPHANIE (ANA), Jacqueline GRACE MD Unavailable Unavailab le SETPHANIE (ANA), Jacqueline GRACE MD Unavailable Unavailab le STEPHANIE (ANA), Jacqueline GRACE MD Unavailable Unavailab le STEPHANIE (ANA), Jacqueline GRACE MD Unavailable Unavailab le STEPHANIE (ANA), Jacqueline GRACE MD Unavailable Unavailab le STEPHANIE (ANA), Jacqueline GRACE MD Unavailable Unavailab le STEPHANIE (ANA), Jacqueline GRACE MD Unavailable Unavailab le STEPHANIE (ANA), Jacqueline GRACE MD Unavailable Unavailab le STEPHANIE (AAN), Jacqueline GRACE MD Unavailable Unavailab le STEPHANIE (ANA), Jacqueline GRACE MD Unavailable Unavailab le STEPHANIE (ANA), Jacqueline GRACE MD Unavailable Unavailab le STEPHANIE (ANA), Jacqueline GRACE MD Unavailable Unavailab le O'lindy, A Chester PA Unavailable Unavailable O'lindy, A Chester PA Unavailable Unavailable O'lindy, A Chester PA Unavailable Unavailable O'lindy, A Chester PA Unavailable Unavailable O'lindy, A Chester PA Unavailable Unavailable O'lindy, A Chester PA Unavailable Unavailable O'lindy, A Chester PA Unavailable Unavailable O'lindy, A Chester PA Unavailable Unavailable O'lindy, A Chester PA Unavailable Unavailable O'lindy, A Chester PA Unavailable Unavailable O'lindy, A Chester PA Unavailable Unavailable O'lindy, A Chester PA Unavailable Unavailable O'lindy, A Chester PA Unavailable Unavailable O'lindy, A Chester PA Unavailable Unavailable O'lindy, A Chester PA Unavailable Unavailable O'lindy, A Chester PA Unavailable Unavailable O'lindy, A Chester PA Unavailable Unavailable O'lindy, A Chester PA Unavailable Unavailable O'lindy, A Chester PA Unavailable Unavailable O'lindy, A Chester PA Unavailable Unavailable O'lindy, A Chester PA Unavailable Unavailable O'lindy, A Chester PA Unavailable Unavailable O'lindy, A Chester PA Unavailable Unavailable O'lindy, A Chester PA Unavailable Unavailable O'lindy, A Chester PA Unavailable Unavailable O'lindy, A Chester PA Unavailable Unavailable O'lindy, A Chester PA Unavailable Unavailable O'lindy, A Chester PA Unavailable Unavailable O'lindy, A Chester PA Unavailable Unavailable O'lindy, A Chester PA Unavailable Unavailable O'lindy, A Chester PA Unavailable Unavailable O'lindy, A Chester PA Unavailable Unavailable Re-disclosure Warning The records that you are about to access may contain information from federally-assisted alcohol or drug abuse programs. If such information is present, then the following federally mandated warning applies: This information has been disclosed to you from records protected by federal confidentiality rules (42 CFR part 2). The federal rules prohibit you from making any further disclosure of this information unless further disclosure is expressly permitted by the written consent of the person to whom it pertains or as otherwise permitted by 42 CFR part 2. A general authorization for the release of medical or other information is NOT sufficient for this purpose. The Federal rules restrict any use of the information to criminally investigate or prosecute any alcohol or drug abuse patient.The records that you are about to access may contain highly sensitive health information, the redisclosure of which is protected by Article 27-F of the [facility] Public Health law. If you continue you may have access to information: Regarding HIV / AIDS; Provided by facilities licensed or operated by the [facility] Office of Mental Health; or Provided by the [facility] Office for People With Developmental Disabilities. If such information is present, then the following [facility] mandated warning applies: This information has been disclosed to you from confidential records which are protected by state law. State law prohibits you from making any further disclosure of this information without the specific written consent of the person to whom it pertains, or as otherwise permitted by law. Any unauthorized further disclosure in violation of state law may result in a fine or shelter sentence or both. A general authorization for the release of medical or other information is NOT sufficient authorization for further disc losure. Family History Family Member Name Family Member Gender Family Member Status Date o f Status Description Data Source(s) Unknown Male Problem [facility] ([facility]) Unknown Male Problem [facility] ([facility]) Unknown Unknown Problem [facility] ([facility]) mother/father Unknown Female Problem [facility] ([facility]) Encounters Encounter Providers Location Date Indications Data Source(s ) Outpatient Attender: Fredy Haas MD Main Office 05/29/2020 10:00:00 AM EST [facility] ([facility]) Attender: LESLY BROWN ([place]) MDReferrer: Keisha SON DO 05/24/2020 08:21:01 PM EST [facility] Attender: LESLY CHÁVEZ) MDReferrer: Keisha ARRINGTON DEEPALI-MARY DO 05/18/2020 08:21:01 PM EST [facility] Attender: LESLY CHÁVEZ) MDReferrer: Keisha ARRINGTON DEEPALI-MARY DO 05/17/2020 08:21:01 PM EST [facility] Attender: LESLY CHÁVEZ) MDReferrer: Keisha ILL DEEPALI-MARY DO 05/17/2020 08:21:01 PM EST [facility] [facility] Attender: LESLY CHÁVEZ) MDReferrer: Keisha ILL DEEPALI-MARY DO 05/16/2020 08:21:01 PM EST [facility] Referrer: SARAI SON DO 05/16/2020 08 :21:01 PM EST [facility] Referrer: SARAI SON DO 05/16/2020 08 :21:01 PM EST [facility] Outpatient Attender: SARAI SON DO [facility] 04/25/2020 07:20:00 AM EST [facility] ([facility]) Outpatient Attender: SARAI SON [facility] 02/16/2020 01:30:00 PM EDT [facility] ([facility]) Outpatient Attender: Mendez Bernal MD Physical Therap y 02/08/2020 10:30:00 AM EDT [facility] ([facility]) Outpatient Attender: SARAI SON DO [facility] 01/04/2020 01:00:00 PM EDT [facility] ([facility]) Outpatient Attender: Mendez Bernal MD Physical Therap y 12/15/2019 11:30:00 AM EDT [facility] ([facility]) Outpatient Referrer: Chester FRANK 09/29/2019 05:06:0 0 PM EDT [facility] Outpatient Referrer: Chester FRANK 09/29/2019 09:38:0 0 AM EDT [facility] Outpatient Referrer: Chester FRANK 09/26/2019 08:42:0 0 AM EDT [facility] Outpatient Referrer: Chester FRANK 09/21/2019 10:48:0 0 AM EDT [facility] Outpatient Referrer: Chester FRANK 07/28/2019 11:38:0 0 AM EDT [facility] Outpatient Attender: Chester FRANK [facility] 07/27/2019 01:30:00 PM EDT [facility] ([facility]) Outpatient Attender: Chester FRANK [facility] 06/22/2019 09:30:00 AM EST [facility] ([facility]) [facility] [address] [place] [phone] 05/26/2019 12:00:00 AM EST eCW1 ([facility]) [facility] [address] [place] [phone] 04/11/2019 12:00:00 AM EST eCW1 ([facility]) Medications Medication Brand Name Start Date Product Form Dose Route Admi nistrative Instructions Pharmacy Instructions Status Indications Reaction Description Data Source(s) Sutab Sutab 05/29/2020 12:00:00 AM EST active [facility] ([facility]) No Active Medications 05/29/2020 12:00:00 AM EST completed [facility] ([facility]) 10 mg-3.5 gram -12 gram/160 mL 05/16/2020 12:00:00 AM EST so lution 320 USE DIRECTED BY GASTROENTEROLOGY AND HEPATOLOGY USE DIRECTED BY GASTROENTEROLOGY AND HEPATOLOGY SOLD: 06/05/2020 [facility] Metronidazole 500 MG Oral Tablet Metronidazole 05/14/2020 12:00:00 AM EST ORAL active [facility] ([facility]) Ciprofloxacin 500 MG Oral Tablet Ciprofloxacin HCL 05/14/2020 12:00 :00 AM EST ORAL active [facility] ([facility]) Metronidazole 500 MG Oral Tablet METRONIDAZOLE 05/14/2020 12:0 0:00 AM EST tablet 14 TAKE ONE TABLET BY MOUTH TWICE A DAY FOR 7 DAYS TAKE ONE TABLET BY MOUTH TWICE A DAY FOR 7 DAYS SOLD: 05/15/2020 [facility] 500 mg 05/14/2020 12:00:00 AM EST tablet 14 TAKE ONE TABLET BY MOUTH TWICE A DAY FOR 7 DAYS TAKE ONE TABLET BY MOUTH TWICE A DAY FOR 7 DAYS SOLD: 2020 [facility] 25 mg 02/16/2020 12:00:00 AM EDT suppository 12 REMOVE WRAPPER AND INSERT 1 SUPPOSITORY RECTALLY ONCE DAILY NEEDED REMOVE WRAPPER AND INSERT 1 SUPPOSITORY RECTALLY ONCE DAILY NEEDED SOLD: 02/24/2020 [facility] 2.5 % 02/16/2020 12:00:00 AM EDT cream with perineal saulo licator 28 APPLY TO EXTERNAL HEMORRHOIDAL AREA AND RECTAL AREA TWO TIMES A DAY NEEDED APPLY TO EXTERNAL HEMORRHOIDAL AREA AND RECTAL AREA TWO TIMES A DAY NEEDED SOLD: 02/24/2020 [facility] Hydrocortisone 25 MG/ML Rectal Cream Hydrocortisone (Periana l) 02/16/2020 12:00:00 AM EDT active [facility] ([facility]) hydrocortisone acetate 25 MG Rectal Suppository Hydrocortiso ne Acetate 02/16/2020 12:00:00 AM EDT active [facility] ([facility]) 50 mcg/actuation 07/28/2019 12:00:00 AM EDT spray,suspension 16 SPRAY TWO SPRAYS IN EACH NOSTRIL EVERY DAY SPRAY TWO SPRAYS IN EACH NOSTRIL EVERY DAY SOLD: 08/23/2019 [facility] Fluticasone Propionate Fluticasone Propionate 06/22/2019 12:00:[address] active [facility] ([facility]) Esomeprazole 40 MG Delayed Release Oral Capsule Esomeprazole Magnesium 03/28/2019 12:00:00 AM EST ORAL completed [facility] ([facility]) Insurance Providers Payer name Policy type / Coverage type Policy ID Covered libertarian ID Covered libertarian's relationship to johnson Policy Johnson Plan Information BCBS NIKIA SHEA PPO 302/307 [id number] MALENA BS B [id number] P VYE [id number] SELF PAY ONLY [id number] [id number] BCBS 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 O [id number] S [id number] [facility] Health Maintenance Organization (HMO) [id number] Self [id number] [facility] COMMUNITY PLAN MCDO [id number] SP [id number] [facility] Health Maintenance Organization (HMO) [id number] Self [id number] [facility] Health Maintenance Organization (HMO) Self UN COMMUNITY PLAN MCDO [id number] SP [id number] MEDICAID [id number] SP [id number] SELF PAY UNAVAILABLE UNAVAILA BLE BLUE CROSS LAFLEUR PLAN [id number] SP [id number] [facility] BLUE [id number] SP [id number] Problems, Conditions, and Diagnoses Code Display Name Description Problem Type Effective Dates Data Source(s) [id number] Diarrhea Diarrhea Problem 05/29/2020 12:00:00 AM ES T [facility] ([facility]) Surgeries/Procedures Procedure Description Date Indications Data Source(s) RADEX SPINE CRV COMPL W/OBLQ&FLEX&/XTN STDS 12/15/2019 12:00:00 AM EDT [facility] ([facility] RADEX SPINE THORACIC 2 VIEWS 12/15/2019 12:00:00 AM ED T [facility] ([facility] RADEX SPINE LUMBOSACRAL MINIMUM 4 VIEWS 12/15/2019 12: 00:00 AM EDT [facility] ([facility] ) DESTRUCT B9 LESION 1-14 04/11/2019 12:00:00 AM EST eCW1 ([facility]) Results ID Date Data Source [id number] 06/01/2020 12:30:00 PM EST [facility] Name Value Range Interpretation Code Description Data Luz rce(s) Supporting Document(s) SARS coronavirus 2 RNA Not Detected [facility] [place] This lab was ordered by [facility] and reported by [facility]. ID Date Data Source [id number] 05/24/2020 09:15:00 AM EST [facility] ([facility]) Name Value Range Interpretation Code Description Data Luz rce(s) Supporting Document(s) Lyme Disease IgM Ab Quantitati Laboratory test result 0.00-0.79 Normal (applies to non-numeric results) [facility] ([facility]) <content>Negative <0.80</content >
<content>Equivocal 0.80 - 1.19</content>
<content>Positive >1.19</content>
<content>.</content>
<content>IgM levels may peak at 3-6 weeks post infection, then</content>
<content>gradually decline.</content>
<content>Performed at: RN - [facility] [place]</content>
<content>[address] [place] [address] [phone]</content>
<content>Duty Officer: Eliana Reis MD, Phone: [phone]</content>
<content></content> Lyme Disease IgG/IgM Antibodie Laboratory test result 0.00-0.90 Normal (applies to non-numeric results) [facility] ([facility]) <content>Negative <0.91</content >
<content>Equivocal 0.91 - 1.09</content>
<content>Positive >1.09</content>
<content></content> ID Date Data Source [id number] 05/23/2020 07:05:00 AM EST [facility] Name Value Range Interpretation Code Description Data Luz rce(s) Supporting Document(s) Referral Test Name [facility] ENBOMYCIAL AB IGG Referral Lab [facility] Referral Test Code or Mnemonic [facility] [id number] Referral Test Results [facility] Reference lab report sent via fax. ID Date Data Source [id number] 05/16/2020 02:48:00 PM EST [facility] ([facility]) Name Value Range Interpretation Code Description Data Luz rce(s) Supporting Document(s) IgA [Mass/volume] in Serum or Plasma 164.0 mg/dL 70-400 Normal (applies to non- numeric results) [facility] ([facility]) Thyrotropin [Units/volume] in Serum or Plasma 0.948 uIU/ML 0. 358-3.740 Normal (applies to non-numeric results) [facility] ([facility]) Ferritin [Mass/volume] in Serum or Plasma 63 ng/mL 8-252 Normal (applies to non- numeric results) [facility] ([facility]) ID Date Data Source [id number] 05/16/2020 02:48:00 PM EST [facility] ([facility]) Name Value Range Interpretation Code Description Data Luz rce(s) Supporting Document(s) Iron (Fe) 108 ug/dL 50-170 Normal (applies to non-numeric resul ts) [facility] ([facility]) Percent Saturation 33.6 % 13.2-45.0 Normal (applies to non-numer ic results) [facility] ([facility]) Total Iron Binding Capacity 321 ug/dL 250-450 Norm al (applies to non-numeric results) [facility] ([facility]) ID Date Data Source [id number] 05/16/2020 02:48:00 PM EST [facility] ([facility]) Name Value Range Interpretation Code Description Data Luz rce(s) Supporting Document(s) Blood Urea Nitrogen 11 mg/dL 7-18 Normal (applies to non-nume saida results) [facility] ([facility]) Creatinine For GFR 0.91 mg/dL 0.55-1.30 Normal (applies to non -numeric results) [facility] ([facility]) Glucose, Fasting 103 mg/dL 70-100 Above high normal [facility] ([facility]) Glomerular Filtration Rate Laboratory test result Normal (applies to non- numeric results) [facility] ([facility]) <content>Units are mL/min/1.73 m2</content>
<content></content>
<content>Chronic Kidney Disease Staging per NKF:</content>
<content></content>
<content>Stage I & II GFR >=60 Normal to Mildly Decreased</content>
<content>Stage III GFR 30- 59 Moderately Decreased</content>
<content>Stage IV GFR 15-29 Severely Decreased</content>
<content>Stage V GFR <15 Very Little GFR Left</content>
<content>ESRD GFR <15 on REGIONAL OFFICE COORDINATOR</content>
<content></content> Sodium Level 140 meq/L 136-145 Normal (applies to non-numeric res ults) [facility] ([facility]) Potassium Serum 4.3 meq/L 3.5-5.1 Normal (applies to non-numeric results) [facility] ([facility]) Carbon Dioxide Level 28 meq/L 21-32 Normal (applies to non-num hugh results) [facility] ([facility]) Anion Gap 3 meq/L 8-16 Below low normal [facility] ( [facility]) Chloride Level 109 meq/L 98-107 Above high normal [facility] ([facility]) Calcium Level 9.0 mg/dL 8.5-10.1 Normal (applies to non-numeric re sults) [facility] ([facility]) ID Date Data Source [id number] 05/16/2020 02:48:00 PM EST [facility] ([facility]) Name Value Range Interpretation Code Description Data Luz rce(s) Supporting Document(s) Ast/Sgot 15 U/L 7-37 Normal (applies to non-numeric resul ts) [facility] ([facility]) Alkaline Phosphatase 41 U/L 45-117 Below low normal [facility] ([facility]) Bilirubin,Total 0.5 mg/dL 0.2-1.0 Normal (applies to non-numeric results) [facility] ([facility]) Alt/SGPT 19 U/L 12-78 Normal (applies to non-numeric resul ts) [facility] ([facility]) Albumin 4.2 GM/DL 3.2-5.2 Normal (applies to non-numeric resul ts) [facility] ([facility]) Total Protein 6.7 GM/DL 6.4-8.2 Normal (applies to non-numeric re sults) [facility] ([facility]) Bilirubin,Direct Laboratory test result 0.0-0.2 Normal ( applies to non-numeric results) [facility] ([facility]) Albumin/Globulin Ratio 1.7 1.2-2.2 Normal (applies to non-n umeric results) [facility] ([facility]) ID Date Data Source [id number] 05/16/2020 02:48:00 PM EST [facility] ([facility]) Name Value Range Interpretation Code Description Data Luz rce(s) Supporting Document(s) Hemoglobin 13.2 g/dL 12.0-15.5 Normal (applies to non-numeric resul ts) [facility] ([facility]) Red Blood Count 4.22 10 4.00-5.40 Normal (applies to non-numeric results) [facility] ([facility]) White Blood Count 5.3 10 4.0-10.0 Normal (applies to non-numeri c results) [facility] ([facility]) Mean Corpuscular Hemoglobin 31.3 pg 27.0-33.0 Norm al (applies to non-numeric results) [facility] ([facility]) Hematocrit 40.5 % 36.0-47.0 Normal (applies to non-numeric resul ts) [facility] ([facility]) Mean Corpuscular Volume 96.0 fl 80.0-96.0 Normal ( applies to non-numeric results) [facility] ([facility]) Platelet Count, Automated 373 10 150-450 Normal (applies to non-numeric results) [facility] ([facility]) Mean Corpuscular HGB Conc 32.6 g/dL 32.0-36.5 Normal (applies to non-numeric results) [facility] ([facility]) Red Cell Distribution Width 11.9 % 11.5-14.5 Norm al (applies to non-numeric results) [facility] ([facility]) Neutrophils % 57.8 % 36.0-66.0 Normal (applies to non-numeric re sults) [facility] ([facility]) Dyer % 7.7 % 0.0-5.0 Above high normal [facility] ([facility]) Lymph % 30.1 % 24.0-44.0 Normal (applies to non-numeric resul ts) [facility] ([facility]) Baso % 1.7 % 0.0-1.0 Above high normal [facility] ([facility]) Nucleated Red Blood Cell % 0.0 % 0-0 Normal (applies to n on-numeric results) [facility] ([facility]) Eos % 2.3 % 0.0-3.0 Normal (applies to non-numeric resul ts) [facility] ([facility]) Immature Granulocyte % 0.4 % 0-3.0 Normal (applies to non-n umeric results) [facility] ([facility]) Neutrophils # 3.1 10 1.5-8.5 Normal (applies to non-numeric re sults) [facility] ([facility]) Lymph # 1.6 10 1.5-5.0 Normal (applies to non-numeric resul ts) [facility] ([facility]) Dyer # 0.4 10 0.0-0.8 Normal (applies to non-numeric resul ts) [facility] ([facility]) Eos # 0.1 10 0.0-0.5 Normal (applies to non-numeric resul ts) [facility] ([facility]) Baso # 0.1 10 0.0-0.2 Normal (applies to non-numeric resul ts) [facility] ([facility]) ID Date Data Source [id number] 05/16/2020 11:48:00 AM EST [facility] ([facility]) Name Value Range Interpretation Code Description Data Luz rce(s) Supporting Document(s) Tissue transglutaminase IgG Ab [Units/volume] in Serum Labor atory test result 0-5 Normal (applies to non-numeric results) [facility] ([facility]) Negative 0 - 5 Weak Positive 6 - 9 Positive >9 Tissue transglutaminase IgA Ab [Units/volume] in Serum Labor atory test result 0-3 Normal (applies to non-numeric results) [facility] ([facility]) Negative 0 - 3 Weak Positive 4 - 10 Positive >10 . Tissue Transglutaminase (tTG) has been identified as the endomysial antigen. Studies have demonstr- ated that endomysial IgA antibodies have over 99% specificity for gluten sensitive enteropathy. Endomysium IgG Ab [Presence] in Serum Laboratory test result Normal (applies to non-numeric results) [facility] ([facility]) SEE SEPARATE REPORT Testing performed at reference lab . Report copy to follow on a separate form. 05/25/20 REF LAB#:[id number] Endomysium IgA Ab [Presence] in Serum Laboratory test result Normal (applies to non-numeric results) [facility] ([facility]) Performed at: RN - [facility] [place] [id number] Duty Officer: Eliana Reis MD, Phone: [phone] ID Date Data Source [id number] 05/16/2020 11:00:00 AM EST [facility] Name Value Range Interpretation Code Description Data Luz rce(s) Supporting Document(s) First Visit [facility] ZYBPWl4wGfFNFoXcTBBdLnpDEVzcNPjzCJKkM9T0AQlfMj7ZMLtuytIaNEKiFx4+DQGdQX2xez6uZVRe gMy [file] /UvsCk1uPF0BW4rF499NDMiwyXBOPM3/+89hiLv [file] 0MoGsaJExPb5JmT+JJfBT9r/SCCcw2nsBlibyxb+PROFESSIONAL ENGINEER [file] 7vLmdC+vY+Chief Juvenile Probation Officer/wm045lM29hPkjzL0RRUeyQe8z/bDlICOkqwkE36C8k0RbEI0BAP7cUckT3KyWoerE45 [file] NQiXCxrUVBw5LcaNH806h34oYe1qcrqfKVBWsnC/PROFESSIONAL ENGINEER [file] MANAGER DATA CENTER/QzgB6xxF2/gAIHgZXHzrgVut8oypd3+4U+vi7d [file] plant maintenance engineer+BGEWdCb5CvATKuxCX5cDNnevStUitRoQSfEdhgc3gUif/1rWzj7WTuCcJDU504JVmLUy/f8giYhqi fQpsmfusqb2IC89JzlcfXa/R+HA6by9k/3IhYz0ciH XyB2JZEO1LalA7yJf5YDpb93opDhc+OTo8nmYGByqb0GNxYqm1XoiZzIdR/QJv9bed+xwJxcXqHttnr6 arBLcbW8ExcpzGetEw5yGnXQRYt9g4I0s/LIE3cewK/vRCJRtk0xtExbKuGV68cqJBivwEndXwlclbvj DioDo9hMWppC5KUw9vdQh6fe04ZxzNOLJ2FJz6kzo1 6pDjI73QzdF0UsCMq2/Nkbdeo0WjaN+1T513V+6lYgmvvIG6K4oTLBvAmLShdQCCznSdix3Cy2yfT0ym f4WMgoHjSHiLZahXc5/LyVXo3qxJ1iQyXrMHRyS5iMNRMOc+HlCU423cbxFwLou7nKrlj2Fj13znAwx1 DQRF0AFNjLF8fO8lE8rdEErRz0RY6ulgg4HcObgu7d 3k05UnWwUjxZuAx9gZWz17eFpEZhL3XiVNM0pqoLPxVL8XLlNR5AB/mDy5D/jcgJHjyqEeHFCiVoaLVY IIKGvqpS1HXZDApobUnBxB/xJVcyI6moov2XDto9B+yfPxFT1D6fe8gbtZqlalmxjLBR14RfRyJ+Sy3o V5P+9BOCF8DTJ3ZhH8z5T8+l3k1aL84809kRcJ0ZKt [file] uPjzOVO6gtdCUjeN73a3MmFYHYpXaSSyyLXj0zo1wimbcBvittMQ/9mTD0W/García+ck3jxDtrpzfKr7Px [file] nzlCc0Bp7aojBH0qxH9F178d1U+PROFESSIONAL ENGINEER+serW2FHIRwqKdr3qxF77zWnx2W8hxyU3yL/zlW2e8eXYjnCJBR [file] Chief Juvenile Probation Officer+qcmmB6kbvQb7S9sSXCiaPpVisTY2zSPTnuvq1Iuzx/D4gBV+CNZ//EVdVdiFTJa/mNt+9xr/FHr21 [file] DvDnlwj+pNy2+67hwa0K97Mw5+ZXnSVAHUz++PA5QCkwyW8ot4rG0NZ7/Pinking Sewing Machine Operator/l8OYyyL4S3v/nBF/hrOI [file] 9qwsHBwcHBwcHBwcHBwcHBwcHBwBwBwBwBwBwBwBwBwBwBwBwLTAC, located within [facility] [file] olJUVPRg== ID Date Data Source [id number] 04/12/2020 02:00:00 PM [facility]) Name Value Range Interpretation Code Description Data Luz rce(s) Supporting Document(s) Coronavirus 2019 Nasopharygeal Laboratory test result [facility] ([facility]) This nucleic acid amplification test was developed and its performance characteristics determined by [facility]. Nucleic acid amplification tests include PCR and [...] detected) result in this assay. Performed at: [facility] [address] [facility], [place] [id number] Duty Officer: Afua Justin PhD, Phone: [phone] Not Detected ID Date Data Source [id number] 04/12/2020 02:00:00 PM EST [facility] Name Value Range Interpretation Code Description Data Luz rce(s) Supporting Document(s) SARS coronavirus 2 RNA [facility] This lab was ordered by [facility] and reported by [facility]. ID Date Data Source [id number] 04/12/2020 12:00:00 AM EST [facility] Name Value Range Interpretation Code Description Data Luz rce(s) Supporting Document(s) SARS coronavirus 2 Ag [facility] This lab was ordered by [facility] and reported by [facility]. ID Date Data Source [id number] 02/17/2020 09:00:00 AM EDT [facility] ([facility]) Name Value Range Interpretation Code Description Data Luz rce(s) Supporting Document(s) Campylobacter Laboratory test result [facility] ([facility]) Laboratory test finding (navigational concept) Laboratory test result [facility] ([facility]) Laboratory test finding (navigational concept) Laboratory test result [facility] ([facility]) Salmonella Laboratory test result [facility] ([facility]) Laboratory test finding (navigational concept) Laboratory test result [facility] ([facility]) Laboratory test finding (navigational concept) Laboratory test result [facility] ([facility]) Laboratory test finding (navigational concept) Laboratory test result [facility] ([facility]) Laboratory test finding (navigational concept) Laboratory test result [facility] ([facility]) Laboratory test finding (navigational concept) Laboratory test result [facility] ([facility]) Laboratory test finding (navigational concept) Laboratory test result [facility] ([facility]) Laboratory test finding (navigational concept) Laboratory test result [facility] ([facility]) Laboratory test finding (navigational concept) Laboratory test result [facility] ([facility]) Laboratory test finding (navigational concept) Laboratory test result [facility] ([facility]) Laboratory test finding (navigational concept) Laboratory test result [facility] ([facility]) Entamoeba histolytica Laboratory test result [facility] ([facility]) Cryptosporidium Laboratory test result [facility] [facility]) Giardia lamblia Laboratory test result [facility]) Laboratory test finding (navigational concept) Laboratory test result [facility] ([facility]) Rotavirus A Laboratory test result [facility] ([facility]) Astrovirus Laboratory test result [facility] ([facility]) Laboratory test finding (navigational concept) Laboratory test result [facility] ([facility]) Saprovirus Laboratory test result [facility] ([facility]) Performed at: [address] [id number] Duty Officer: Kevan Figueroa MD, Phone: [phone] Not Detected ID Date Data Source [id number] 01/05/2020 05:25:00 AM EDT [facility] ([facility]) Name Value Range Interpretation Code Description Data Luz rce(s) Supporting Document(s) Laboratory test finding (navigational concept) Laboratory test result [facility] ([facility]) ID Date Data Source [id number] 01/05/2020 05:25:00 AM EDT [facility] ([facility]) Name Value Range Interpretation Code Description Data Luz rce(s) Supporting Document(s) Last menstrual period start date Laboratory test result Normal (applies to non-numeric results) [facility] ([facility]) NONE GIVEN Service comment Laboratory test result Normal (a pplies to non-numeric results) [facility] ([facility]) Clinical information Laboratory test result Norm al (applies to non-numeric results) [facility]) None given Specimen source [Identifier] in Cervical or vaginal smear or scraping by Cyto stain Laboratory test result Normal (applies to non-numeric results) [facility] ([facility]) Cervix, Endocervix Date of previous PAP smear Laboratory test result Normal (applies to non- numeric results) [facility]) NONE GIVEN Date of previous biopsy Laboratory test result N ormal (applies to non-numeric results) [facility] ([facility]) General categories [Interpretation] of C ervical or vaginal smear or scraping by Cyto stain Laboratory test result Normal (applies to non-numeric results) [facility]) Statement of adequacy [Interpretation] o f Cervical or vaginal smear or scraping by Cyto stain Laboratory test result Normal (applies to non-nu meric results) [facility] ([facility]) SATISFACTORY FOR EVALUATION Microorganism identified in Cervical or vaginal smear or scraping by Cyto stain Laboratory test result Normal (applies to non-numeric results) [facility] ([facility]) Microscopic observation [Identifier] in Cervix by Cyto stain Laboratory test result [facility] ([facility]) Negative for intraepithelial lesion or m alignancy. Atrophic pattern; predominantly parabasal cells Cytology study comment Cervical or vaginal smear or sc raping Cyto stain Laboratory test result Normal (applies to non-numeric results) [facility] ([facility]) This Pap test has been evaluated with [employer] assisted technology. Parabasal cells in smears that lack maturation due to atrophy or other hormonal reasons cannot be differentiated from transformation zone cells. Accordingly, presence or absence of endocervical or transformation zone components cannot be reported in this patient. Sanitation Engineer who read Cyto stain of Cervical or vaginal smear or scraping Laboratory test result Normal (applies to non-numeric results) [facility] ([facility]) Reference Range: ZL, CT(ASCP) CT screening location: [employer] [place] [address] . Pathologist who read Cyto stain of Cervical or vaginal smear or scraping Laboratory test result Normal (applies to non-numeric results) [facility]) Sanitation Engineer who read Cyto stain of Cervical or vaginal smear or scraping Laboratory test result Normal (applies to non-numeric results) [facility] ([facility]) Human papilloma virus E6+E7 mRNA [Presen ce] in Cervix by Probe and target amplification method Laboratory test result Normal (applies to non-numeric results) [facility]) This test was performed using the APTIMA HPV Assay ([employer] This assay detects E6/E7 viral messenger RNA (mRNA) from 14 high-risk HPV types (16,18,31,33,35,39,45,51,52,56,58,59,66,68). The analytical performance characteristics of this assay have been determined by [employer]. The modifications have not been cleared or approved by the FDA. This assay has been validated pursuant to the CLIA regulations and is used for clinical purposes. NO COLLECTION DATE RECEIVED. WE HAVE USED THE DATE THE SPECIMEN WAS RECEIVED BY THIS LABORATORY THE COLLECTION DATE. IF THIS IS INCORRECT, PLEASE CONTACT CLIENT SERVICES. PHONE NUMBER: [phone] Comment Laboratory test result [facility] ([facility]) EXPLANATORY NOTE: The Pap is a screening test for cervical cancer. It is not a diagnostic test and is subject to false negative and false positive results. It is most reliable when a satisfactory sample, regularly obtained, is submitted with relevant clinical findings and history, and when the Pap result is evaluated along with historic and current clinical information. ID Date Data Source [id number] 01/05/2020 05:25:00 AM EDT [facility] ([facility]) Name Value Range Interpretation Code Description Data Luz rce(s) Supporting Document(s) Laboratory test finding (navigational concept) Laboratory test result [facility] ([facility]) This order for age-based cervical cancer and STI screening follows ACOG guidelines(PB 168, 140, ZXX766). See individual assays for performing site location. ID Date Data Source [id number] 09/29/2019 12:00:[address] [facility] Menjivar [facility] Patient Name: DORITA [id number] Date of : 1965[place] [address] Date of Exam: 09/29/2019PH#: Fax: [phone] EXAM: MRI BRAIN WITHOUT CONTRASTCLINICAL INFORMATION: Consistent head pressure. Intermittent dizzinessand blurred vision.Comparison MRI study is from 05/05/2015.TECHNIQUE:3T multiplanar MRI imaging of the brain was obtained using varioussequences.MRI FINDINGS:No bony calvarial defect is seen. Craniocervical junction and uppercervical cord are unremarkable. There is no MR evidence of significantparanasal sinus disease. No intraorbital abnormality is seen.Diffusion weighted scans show no evidence to suggest acute ischemia. Thereis no evidence of intracranial mass or hemorrhage. There are prominentperivascular spaces noted at the inferior aspect of the basal gangliabilaterally, unchanged. This is a normal variant.IMPRESSION:Minimal small vessel changes. Otherwise, negative MRI study of the brainwithout contrast. No change from 05/05/2015.Accredited by the [employer] in MR.BRUCE Main/Keila you for referring DORITA BAEZA to our office. Electronically Signed - HOLLY RODNEY MD 09/29/19 15:34 Name Value Range Interpretation Code Description Data [facility] rce(s) Supporting Document(s) ID Date Data Source [id number] 09/03/2019 12:30:00 PM EDT [facility] ([facility]) Name Value Range Interpretation Code Description Data Luz rce(s) Supporting Document(s) Coronavirus 2019 Nasopharygeal Laboratory test result [facility] ([facility]) Laboratory test finding (navigational concept) Laboratory test r esult Normal (applies to non-numeric results) [facility] ([facility]) A false negative result may occur if a s pecimen is improperly collected, transported or handled. False negative results may also occur if inadequate numbers of organisms are present in the specimen. As with any molecular test, mutations within the target regions of Xpert Xpress SARS-CoV-2 could affect primer and/or probe binding resulting in failure to detect the presence of virus. This test cannot rule out diseases caused by other bacterial or viral pathogens. DISCLAIMER: Testing was performed using the [employer] SARS-CoV-2 test. This test was developed and its performance characteristics determined by [employer] This test has not been FDA cleared [...] section 564(b)(1) of the Act, 21 U.S.C. 360bbb-3(b)(1), unless the authorization is terminated or revoked sooner. Laboratory test finding (navigational concept) Laboratory test result [facility] ([facility]) Laboratory test finding (navigational concept) Laboratory test result [facility] ([facility]) Laboratory test finding (navigational concept) Laboratory test result [facility] ([facility]) Laboratory test finding (navigational concept) Laboratory test result [facility] ([facility]) Laboratory test finding (navigational concept) Laboratory test result [facility] ([facility]) Laboratory test finding (navigational concept) Laboratory test result [facility] ([facility]) Laboratory test finding (navigational concept) Laboratory test result [facility] ([facility]) Laboratory test finding (navigational concept) Laboratory test result [facility] ([facility]) Laboratory test finding (navigational concept) Laboratory test result [facility] ([facility]) Laboratory test finding (navigational concept) Laboratory test result [facility] ([facility]) Laboratory test finding (navigational concept) Laboratory test result [facility] ([facility]) Laboratory test finding (navigational concept) Laboratory test result [facility] ([facility]) Laboratory test finding (navigational concept) Laboratory test result [facility] ([facility]) Procedure Social History Code Duration Value Status Description Data Source(s ) Smoking 04/25/2020 12:00:00 AM EST Patient has never smoked co mpleted Patient has never smoked [facility] ([facility]) Vital Signs ID Date Data Source UNK Name Value Range Interpretation Code Description Data Source(s) Body temperature 97.5 [degF] 97.5 [degF] [facility] ([facility]) Body weight 45.814 kg 45.814 kg [facility] Body mass index (BMI) [Ratio] 17.3 kg/m2 17.3 k g/m2 [facility] ([facility]) Heart rate 59 /min 59 /min [facility] ([facility]) Diastolic blood pressure 86 mm[Hg] 86 mm[Hg] [facility] ([facility]) Systolic blood pressure 113 mm[Hg] 113 mm[Hg] [facility] ([facility]) Body weight 101.00 [lb_av] 101.00 [lb_av] [facility] T ([facility]) Body height 64 [in_i] 64 [in_i] [facility] 5'4" [place] body weight 115 [lb_av] 115 [lb_av] [facility] T ([facility]) Oxygen saturation in Arterial blood by Pulse oximetry 97 % 97 % [facility] ([facility]) Body temperature 98.2 [degF] 98.2 [degF] [facility] ([facility]) Respiratory rate 18 /min 18 /min [facility] ( [facility]) Heart rate 81 /min 81 /min [facility] ([facility]) Body mass index (BMI) [Ratio] 18.5 kg/m2 18.5 k g/m2 [facility] ([facility]) Body weight 104.38 [lb_av] 104.38 [lb_av] [facility] T ([facility]) Body height 63.0 [in_i] 63.0 [in_i] [facility] ([facility]) 5'3" Diastolic blood pressure 70 mm[Hg] 70 mm[Hg] [facility] ([facility]) Systolic blood pressure 120 mm[Hg] 120 mm[Hg] [facility] ([facility]) [place] body weight 115 [lb_av] 115 [lb_av] [facility] T ([facility]) Oxygen saturation in Arterial blood by Pulse oximetry 99 % 99 % [facility] ([facility]) Body temperature 98.5 [degF] 98.5 [degF] [facility] ([facility]) Respiratory rate 18 /min 18 /min [facility] ( [facility]) Heart rate 66 /min 66 /min [facility] ([facility]) Body mass index (BMI) [Ratio] 18.6 kg/m2 18.6 k g/m2 [facility] ([facility]) Body weight 105.00 [lb_av] 105.00 [lb_av] [facility] T ([facility]) Body height 63.0 [in_i] 63.0 [in_i] [facility] ([facility]) 5'3" Diastolic blood pressure 68 mm[Hg] 68 mm[Hg] [facility] ([facility]) Systolic blood pressure 110 mm[Hg] 110 mm[Hg] [facility] ([facility]) [place] body weight 115 [lb_av] 115 [lb_av] [facility] T ([facility]) Oxygen saturation in Arterial blood by Pulse oximetry 99 % 99 % [facility] ([facility]) Body temperature 98.2 [degF] 98.2 [degF] [facility] ([facility]) Respiratory rate 20 /min 20 /min [facility] ( [facility]) Heart rate 77 /min 77 /min [facility] ([facility]) Body mass index (BMI) [Ratio] 18.3 kg/m2 18.3 k g/m2 [facility] ([facility]) Body weight 103.06 [lb_av] 103.06 [lb_av] [facility] T ([facility]) Body height 63.0 [in_i] 63.0 [in_i] [facility] ([facility]) 5'3" Diastolic blood pressure 78 mm[Hg] 78 mm[Hg] [facility] ([facility]) Systolic blood pressure 110 mm[Hg] 110 mm[Hg] [facility] ([facility]) Oxygen saturation in Arterial blood by Pulse oximetry 98 % 98 % [facility] ([facility]) Body temperature 98.7 [degF] 98.7 [degF] [facility] ([facility]) Respiratory rate 18 /min 18 /min [facility] ( [facility]) Heart rate 76 /min 76 /min [facility] ([facility]) Body mass index (BMI) [Ratio] 19.4 kg/m2 19.4 k g/m2 [facility] ([facility]) Body weight 109.38 [lb_av] 109.38 [lb_av] [facility] T ([facility]) Body height 63.0 [in_i] 63.0 [in_i] [facility] ([facility]) 5'3" Diastolic blood pressure 68 mm[Hg] 68 mm[Hg] [facility] ([facility]) Systolic blood pressure 110 mm[Hg] 110 mm[Hg] [facility] ([facility]) Oxygen saturation in Arterial blood by Pulse oximetry 97 % 97 % [facility] ([facility]) Body temperature 97.5 [degF] 97.5 [degF] [facility] ([facility]) Respiratory rate 18 /min 18 /min [facility] ( [facility]) Heart rate 68 /min 68 /min [facility] ([facility]) Body mass index (BMI) [Ratio] 19.0 kg/m2 19.0 k g/m2 [facility] ([facility]) Body weight 107.12 [lb_av] 107.12 [lb_av] [facility] T ([facility]) Body height 63.0 [in_i] 63.0 [in_i] [facility] ([facility]) 5'3" Diastolic blood pressure 66 mm[Hg] 66 mm[Hg] [facility] ([facility]) Systolic blood pressure 114 mm[Hg] 114 mm[Hg] [facility] ([facility]) Diastolic blood pressure 72 mm[Hg] 72 mm[Hg] eCW1 ([facility]) Systolic blood pressure 112 mm[Hg] 112 mm[Hg] e CW1 ([facility]) Body temperature 98.6 [degF] 98.6 [degF] eCW1 ( [facility]) Respiratory rate 18 /min 18 /min eCW1 ([facility]) Heart rate 80 /min 80 /min eCW1 ([facility]) Body mass index (BMI) [Ratio] 18.79 kg/m2 18.79 kg/m2 eCW1 ([facility]) Body height [in_us] eCW1 ([facility]) Body weight Measured 107.8 [lb_av] 107.8 [lb_av ] eCW1 ([facility])
--- OUTSIDE RECORDS SUMMARY | 2020-06-06 11:32 | CCD | Continuity of Care Document ---
Author Dorita Osuna D.O. Organization Unknown Address [address] [place] [address] Phone [phone] Care Team Providers Care Balance Wheel Screw Hole Tapper Name Role Phone Thais Carreon D.O. AUTM [phone] Francy Bruce M.D. AUTM [phone] Problems Description No Information Available Social History [...] F O2 % BldC Oximetry 97 % [place] Body Weight 115 lb 02/16/2020 1:42pm BP Systolic 110 mmHg BP Diastolic 68 mmHg Height 63.0 inches 5'3" Weight 105.00 lb BMI (Body Mass Index) 18.6 kg/m2 Heart Rate 66 /min Respiratory Rate 18 /min Body Temperature 98.5 F O2 % BldC Oximetry 99 % [place] Body Weight 115 lb Results Test Acquired Date Facility Test Result H/L Range Note Coronavirus 2019 Nasopharygeal 04/12/2020 [facility] Outpa tient Testing (Registration) [address] [place] [address] [phone] Coronavirus 2019 Nasopharygeal This nucleic aci <SEE N OTE> 1 G I Profile Stool PCR So 02/17/2020 [facility] Outpatient Testing (Registration) [address] [place] [address] [phone] Campylobacter Not Detected 2 C.difficile A/B Not [...] DNR Normal Comment: (SEE NOTE) Normal 31 Rural Electrification Engineer: (SEE NOTE) Normal See Note: 32 Review Rural Electrification Engineer: DNR Normal Pathologist: DNR Normal Comment (SEE NOTE) 33 HPV mRNA E6/E7 Not Detected Normal Not Detected 34 Laboratory test finding 01/05/2020 [facility] Dia Enhanced PDF Report [id number] SEE IMAGE 1 This nucleic acid amplificat ion test was developed and its performance characteristics determined by [employer]. Nucleic acid amplification tests include PCR and [...] detected) result in this assay. Performed at: [facility] [address] [facility], [place], [place] [id number] Metal Fabricator Helper: Afua Justin PhD, Phone: [phone] Not Detected 2 3 4 5 6 7 8 9 10 11 12 13 14 15 16 17 18 19 20 21 22 23 Performed at: [address] [id number] Metal Fabricator Helper: Kevan Figueroa MD, Phone: [phone] Not Detected 24 This order for age-based cer vical cancer and STI screening follows ACOG guidelines(PB 168, 140, [id number]). See individual assays for performing site location. [...] Reference Range: ZL, CT(ASCP) CT screening location: [facility], [address] [place] [address], [place] [address] . 33 EXPLANATORY NOTE: The Pap is [...] performed usin g the APTIMA HPV Assay ([employer] This assay detects E6/E7 viral messenger RNA (mRNA) from 14 high-risk HPV types (16,18,31,33,35,39,45,51,52,56,58,59,66,68). The analytical performance characteristics of this assay have been determined by [employer]. The modifications have not been cleared or approved by the FDA. This assay has been validated pursuant to the CLIA regulations and is used for clinical purposes. NO COLLECTION DATE RECEIVED. WE HAVE USED THE DATE THE SPECIMEN WAS RECEIVED BY THIS LABORATORY THE COLLECTION DATE. IF THIS IS INCORRECT, PLEASE CONTACT CLIENT SERVICES. PHONE NUMBER: [phone] Procedures Description No Information Available Medical Devices Description No Information Available Encounters Type Date Location Provider Dx Diagnosis Office Visit 04/25/2020 8:20a 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 02/16/2020 K64.9 Unspecified hemorrhoids Thais Fontaine D.O. 01/04/2020 Z01.419 Encounter for gyneco logical examination (general) (routine) without abnormal findings Thais Carreon D.O. Plan of Treatment 04/25/2020 - Thais Carreon D.O.* R19.7 Diarrhea, unspecified* Comments: * I will refer to GI to evaluate and treat. * Referral:* Heaven Cardona M.D., Gastroenterology * Follow up:* 2 months * K64.9 Unspecified hemorrhoids* Comments:* these have improved Functional Status Description No Information Available Mental Status Description No Information Available Referrals Refer to Reason for Referral Status Appt Date Heaven Cardona M.D. This is a 54 year old female with chronic diarrhea and her GI panel has been negative. Please evalaute and treat. Created [facility] [address] [place] [address] [phone]
[2020-06-06] MEDS ORDERED: LIDOCAINE 2% 100MG/5ML SDV (FOR ANES.) As Ordered ONE (11:38)
[2020-06-06] MEDS ORDERED: propofoL 200 MG/20 ML VIAL As Ordered ONE (11:38)
--- NOTE | 2020-06-06 13:07 | ROOR ---
Patient Name: Dorita Baeza Procedure Date: 06/06/2020 12:39 PM Date of : 1965 Age: 54 Room: [facility] Gender: Female Note Status: Finalized Procedure: Total Colonoscopy to Cecum + Bx. To r/o Microscopic Colitis Indications: Lower abdominal pain, Change in bowel habits Providers: Fredy Haas MD Referring MD: Thais SON DO Requesting Provider: Medicines: Monitored Anesthesia Care Complications: No immediate complications. Procedure: Pre-Anesthesia Assessment: - The heart rate, respiratory rate, oxygen saturations, blood pressure, adequacy of pulmonary ventilation, and response to care were monitored throughout the procedure. The Colonoscope was introduced through the anus and advanced to the cecum, identified by appendiceal orifice and ileocecal valve. The colonoscopy was performed without difficulty. The patient tolerated the procedure well. The quality of the bowel preparation was excellent. Findings: The perianal and digital rectal examinations were normal. Non-bleeding internal hemorrhoids were found during retroflexion. The hemorrhoids were small and Grade I (internal hemorrhoids that do not prolapse). No other significant abnormalities were identified in a careful examination of the remainder of the colon. The exam was otherwise without abnormality on direct and retroflexion views. Biopsies for histology were taken with a cold forceps from the ascending colon, transverse colon, descending colon and rectosigmoid colon for evaluation of microscopic colitis. The exam was otherwise without abnormality. Impression: - Non-bleeding internal hemorrhoids. - The examination was otherwise normal on direct and retroflexion views. - No specimens collected. Recommendation: - Patient has a contact number available for emergencies. The signs and symptoms of potential delayed complications were discussed with the patient. Return to normal activities tomorrow. Written discharge instructions were provided to the patient. - High fiber diet. - Discharge patient to home. - Continue present medications. - Await pathology results. - Telephone GI clinic for pathology results in 1 week. - Repeat colonoscopy in 10 years for screening purposes. - Return to referring physician. - The findings and recommendations were discussed with the patient. Procedure Code(s): --- Professional --- 05274, Colonoscopy, flexible; with biopsy, single or multiple Diagnosis Code(s): --- Professional --- K64.0, First degree hemorrhoids R10.30, Lower abdominal pain, unspecified R19.4, Change in bowel habit CPT copyright 2019 [employer]. All rights reserved. The codes documented in this report are preliminary and upon burglar alarm superintendent review may be revised to meet current compliance requirements. Fredy Haas MD Fredy Haas MD 06/06/2020 1:07:23 PM Electronically signed by Fredy Haas MD Number of Addenda: 0 Note Initiated On: 06/06/2020 12:39 PM Estimated Blood Loss: Estimated blood loss: none.
[2020-06-06 13:31] VITALS: BP 146/90
== END 2020-06-06 13:37 | disposition home or self-care (01) ==
LOC: M OPP 11:21
PROVIDERS: ATTEND Internal Medicine Gastroenterology
DX: R10.30 Lower abdominal pain, unspecified (principal); R19.4 Change in bowel habit; D12.6 Benign neoplasm of colon, unspecified; K64.0 First degree hemorrhoids

== ENCOUNTER → 2020-06-15 | Outpatient (CLI) | payer BC ==
--- NOTE | 2020-06-16 04:27 | REP ---
INDICATION: PELVIC AND PERINEAL PAIN COMPARISON: None. TECHNIQUE: Transabdominal pelvic ultrasound followed by transvaginal examination for better evaluation of the endometrium and adnexa. FINDINGS: Bladder is unremarkable, under distended and measures 3.7 x 2.1 x 6.4 cm. Normal retroverted uterus measures 6.1 x 2.3 x 3.2 cm. The endometrial complex measures 2.4 mm thickness. No discrete uterine or endometrial abnormalities are appreciated. Bilateral ovaries are normal in appearance. Right ovary measures 2.5 x 1.0 x 1.3 cm. Left ovary measures 2.1 x 1.4 x 1.5 cm. No pelvic fluid or adnexal mass lesion. IMPRESSION: Normal pelvic ultrasound. <Electronically signed by Chris Delarosa > 06/16/20 [id number]
== END ==
LOC: M RAD 13:09
PROVIDERS: ATTEND Family Medicine
DX: R10.2 Pelvic and perineal pain (principal)

== ENCOUNTER → 2020-07-26 | Outpatient (REF) | payer BC ==
[2020-07-26 15:52] LABS: BASO # 0.1 10^3/uL (0.0-0.2); BASO % 1.4 % (0.0-1.0); EOS # 0.1 10^3/uL (0.0-0.5); EOS % 1.9 % (0.0-3.0); HEMATOCRIT 42.2 % (36.0-47.0); LYMPH # 1.8 10^3/uL (1.5-5.0); LYMPH % 31.3 % (24.0-44.0); MEAN CORPUSCULAR HEMOGLOBIN 31.5 pg (27.0-33.0); MEAN CORPUSCULAR HGB CONC 33.2 g/dl (32.0-36.5); MEAN CORPUSCULAR VOLUME 94.8 fl (80.0-96.0); MONO # 0.5 10^3/uL (0.0-0.8); MONO % 8.6 % (2.0-8.0); NEUTROPHILS # 3.3 10^3/uL (1.5-8.5); NEUTROPHILS % 56.5 % (36.0-66.0); PLATELET COUNT, AUTOMATED 352 10^3/uL (150-450); RED BLOOD COUNT 4.45 10^6/uL (4.00-5.40); WHITE BLOOD COUNT 5.8 10^3/uL (4.0-10.0)
[2020-07-26 16:24] LABS: ALBUMIN 4.4 GM/DL (3.2-5.2); ALT/SGPT 16 U/L (12-78); BILIRUBIN,TOTAL 0.5 MG/DL (0.2-1.0); BLOOD UREA NITROGEN 7 MG/DL (7-18); CALCIUM LEVEL 9.8 MG/DL (8.5-10.1); CARBON DIOXIDE LEVEL 28 MEQ/L (21-32); CHLORIDE LEVEL 102 MEQ/L (98-107); CREATININE FOR GFR 0.71 MG/DL (0.55-1.30); FREE T4 0.84 NG/DL (0.76-1.46); GLOMERULAR FILTRATION RATE > 60.0 (>51); GLUCOSE, FASTING 97 MG/DL (70-100); POTASSIUM SERUM 4.4 MEQ/L (3.5-5.1); SODIUM LEVEL 136 MEQ/L (136-145); TOTAL PROTEIN 7.2 GM/DL (6.4-8.2)
[2020-07-26 16:57] LABS: FOLATE 9.3 NG/ML; TOTAL T3 85.5 NG/DL (60.0-181.0); VITAMIN B12 LEVEL 239 PG/ML
[2020-07-26 18:12] LABS: ERYTHROCYTE SEDIMENTATION RATE 3 mm/hr (0-30)
== END ==
LOC: M SFHCPLAZ 12:45
PROVIDERS: ATTEND Internal Medicine Infectious Disease
DX: R63.4 Abnormal weight loss (principal); T14.8XXA Other injury of unspecified body region, initial encounter; W57.XXXS Bitten or stung by nonvenomous insect and other nonvenomous arthropods, sequela; Y92.89 Other specified places as the place of occurrence of the external cause

== ENCOUNTER → 2020-08-03 | Outpatient (CLI) | payer SELFPAY | LOC: M LABSMTC 12:24 | PROVIDERS: ATTEND Pediatrics | DX: Z11.52 Encounter for screening for COVID-19 (principal) ==

== ENCOUNTER → 2020-08-09 | Outpatient (REF) | payer BC ==
[2020-08-14 14:08] LABS: E CHAFFEENSIS IgG TITER Negative (Neg:<1:64); E CHAFFEENSIS IgM TITER Negative (Neg:<1:20); EBV VIRAL CAPSID AG IgG >600.0 U/mL (0.0-17.9); EBV VIRAL CAPSID AG IgM <36.0 U/mL (0.0-35.9); HUMAN GRANULCYTIC EHRLIC IgG Negative (Neg:<1:64); HUMAN GRANULCYTIC EHRLIC IgM Negative (Neg:<1:20); RMSFIGG1 Negative (Negative); RPR Non Reactive (Non Reactive)
== END ==
LOC: M SFHCPLAZ 12:49
PROVIDERS: ATTEND Internal Medicine Infectious Disease
DX: R20.0 Anesthesia of skin (principal)

== ENCOUNTER → 2020-08-27 | Outpatient (CLI) | payer BC ==
[2020-08-27 13:02] LABS: BASO # 0.1 10^3/uL (0.0-0.2); BASO % 1.7 % (0.0-1.0); EOS # 0.1 10^3/uL (0.0-0.5); EOS % 1.7 % (0.0-3.0); HEMATOCRIT 40.1 % (36.0-47.0); HEMOGLOBIN 13.2 g/dl (12.0-15.5); LYMPH # 1.7 10^3/uL (1.5-5.0); LYMPH % 35.8 % (24.0-44.0); MEAN CORPUSCULAR HEMOGLOBIN 31.3 pg (27.0-33.0); MEAN CORPUSCULAR HGB CONC 32.9 g/dl (32.0-36.5); MONO # 0.4 10^3/uL (0.0-0.8); MONO % 8.6 % (2.0-8.0); NEUTROPHILS # 2.4 10^3/uL (1.5-8.5); NEUTROPHILS % 51.8 % (36.0-66.0); PLATELET COUNT, AUTOMATED 354 10^3/uL (150-450); RED BLOOD COUNT 4.22 10^6/uL (4.00-5.40); WHITE BLOOD COUNT 4.6 10^3/uL (4.0-10.0)
[2020-08-27 13:32] LABS: ERYTHROCYTE SEDIMENTATION RATE 6 mm/hr (0-30)
[2020-08-27 17:01] LABS: C REACTIVE PROTEIN QUANTITATIV < 0.30 MG/DL (0.00-0.30); RHEUMATOID FACTOR QUANT < 10.0 IU/ML (<15.0)
[2020-08-27 17:13] LABS: FOLATE 12.4 NG/ML; VITAMIN B12 LEVEL 269 PG/ML
== END ==
LOC: M WUC 11:03
PROVIDERS: ATTEND Psychiatry & Neurology Neurology
DX: H93.13 Tinnitus, bilateral (principal); M54.6 Pain in thoracic spine; R20.2 Paresthesia of skin

== ENCOUNTER → 2020-09-24 | Outpatient (CLI) | payer BC ==
[~2020-09-24] MED LIST changes: -NS 1,000 ML IV ONE; +PROHANCE 279.3MG/ML 5ML VIAL As Ordered ONE
--- NOTE | 2020-09-25 08:30 | REP ---
INDICATION: PARESTHESIA OF SKIN. COMPARISON: Comparison MRI study is from September 29, 2019.. TECHNIQUE: Axial and sagittal imaging planes are utilized for T1 and T2-weighted scans. Sequences include spin-echo, fast spin echo, FLAIR, and diffusion weighted sequences. Gadolinium enhancement dose is 9 mL of intravenous ProHance. Post gadolinium enhanced T1 weighted fat sat imaging is acquired in all 3 planes. FINDINGS: No bony calvarial abnormality is appreciated. Craniocervical junction upper cervical cord are normal in appearance. There is no MR evidence of significant paranasal sinus disease. No intraorbital abnormality is appreciated. The lateral, 3rd, and 4th ventricles are normal in size and position. Diffusion-weighted scans show no evidence of restricted diffusion to suggest acute ischemia. There is no evidence of intracranial hemorrhage or mass lesion. No extra-axial fluid collection is noted. There are several scattered subcortical and periventricular areas of T2 hyperintensity again noted in the left parietal left occipital and right temporoparietal region unchanged from comparison study and most consistent with small vessel atherosclerotic changes. There are normal variant perivascular spaces inferiorly the basal ganglia also unchanged. No abnormal gadolinium enhancement is seen. Enhancement is noted in normal vascular structures. IMPRESSION: No acute intracranial abnormality. Scattered foci of T2 hyperintensity stable from prior study and most compatible with small vessel changes. <Electronically signed by Kin Painter > 09/25/20 [id number]
--- NOTE | 2020-09-25 08:50 | REP ---
INDICATION: PARESTHESIA OF SKIN. COMPARISON: None. TECHNIQUE: Sagittal and axial T1 and T2-weighted scans are acquired in the usual fashion with and without fat saturation. Sequences include spin echo, turbo spin-echo, and STIR imaging sequences. Gadolinium enhancement dose is 10 mL of intravenous ProHance. Post gadolinium enhanced axial and sagittal images are included. FINDINGS: There is straightening of the of the normal cervical lordosis. Cortical and medullary bone signal intensity are normal except at C5-6 where there is degenerative disc narrowing and some minimal reactive marrow changes. No bony destructive lesion is seen. The cervical cord is normal in course, caliber, and signal intensity on T1 and T2 weighted scans. Craniocervical junction is unremarkable. Axial and sagittal images taken at C2-C3 show no abnormality. At C3-C4, there is no evidence of disc protrusion or foraminal narrowing. At C4-5, there is minimal uncovertebral spurring on the right. No cord compression is seen. At C5-6, degenerative disc narrowing is present with mild posterior osteophytic ridging and mild bilateral uncovertebral spurring. There is minimal neural foraminal narrowing at the C5-6 level. At C6-C7 there is mild disc space narrowing and a small focal central disc protrusion is present. This indents the ventral margin of the thecal sac but does not compress the cord. No spinal stenosis is seen. No foraminal narrowing is appreciated. The C7-T1 level is unremarkable. Post gadolinium enhanced images show no abnormal gadolinium enhancement. No intramedullary enhancement is appreciated. IMPRESSION: Small central focal disc protrusion at C6-7. Degenerative disc narrowing with mild posterior osteophytic ridging and mild bilateral uncovertebral spurring at C5-6. No acute abnormality. <Electronically signed by Kin Painter > 09/25/20 [id number]
--- NOTE | 2020-09-25 09:25 | REP ---
INDICATION: PARESTHESIA OF SKIN. COMPARISON: None. TECHNIQUE: Sagittal and axial T1 and T2-weighted scans are acquired in the usual fashion with and without fat saturation. Sequences include spin echo, turbo spin-echo, and STIR imaging sequences. 10 mL of intravenous ProHance is administered and postcontrast enhanced T1 fat sat sagittal and axial images are acquired. FINDINGS: Cortical and medullary bone signal intensity are normal in the thoracic spine. Vertebral body heights are preserved. Alignment is normal. There is degenerative disc narrowing at the T11-12 level and axial and sagittal images at this level demonstrate minimal diffuse disc bulging. No cord compression is seen. No foraminal narrowing is seen and any thoracic level. There is no other evidence of disc protrusion or spinal cord compression. The thoracic spinal cord is normal in course, caliber, and signal intensity on T1 and T2 weighted scans. No abnormal intrinsic cord signal is seen. No mass or extra medullary intraspinal lesion is seen. No abnormal gadolinium enhancement is appreciated. IMPRESSION: Degenerative disc disease with mild diffuse disc bulging at T11-12. Otherwise negative MRI thoracic spine without and with IV contrast. <Electronically signed by Kin Painter > 09/25/20 [id number]
== END ==
LOC: M RAD 16:29
PROVIDERS: ATTEND Psychiatry & Neurology Neurology
DX: R20.2 Paresthesia of skin (principal)

== ENCOUNTER → 2020-10-01 | Outpatient (REF) | payer BC | LOC: M LAB REF 20:16 | PROVIDERS: ATTEND Physician Assistant | DX: R35.0 Frequency of micturition (principal) ==

== ENCOUNTER → 2020-12-06 | Outpatient (REF) | payer BC | LOC: M SFHCWAGY 18:27 | PROVIDERS: ATTEND Obstetrics & Gynecology | DX: Z11.51 Encounter for screening for human papillomavirus (HPV) (principal); N95.2 Postmenopausal atrophic vaginitis ==

== ENCOUNTER → 2022-03-13 | Outpatient (CLI) | payer OTHER | LOC: M PLALAB 12:00 | PROVIDERS: ATTEND Family Medicine | DX: R14.0 Abdominal distension (gaseous) (principal) ==

== ENCOUNTER → 2022-04-07 | Outpatient (CLI) | payer OTHER | LOC: M WHC 14:23 | PROVIDERS: ATTEND Family Medicine | DX: D25.9 Leiomyoma of uterus, unspecified (principal); R10.2 Pelvic and perineal pain ==

== ENCOUNTER → 2022-09-03 | Outpatient (CLI) | payer BC | LOC: M RAD 10:50 | PROVIDERS: ATTEND Obstetrics & Gynecology | DX: D25.1 Intramural leiomyoma of uterus (principal) ==

== ENCOUNTER → 2024-03-14 | Outpatient (CLI) | payer BC | LOC: M WUC 13:24 | PROVIDERS: ATTEND Student in an Organized Health Care Education/Training Program | DX: S20.461A Insect bite (nonvenomous) of right back wall of thorax, initial encounter (principal); W18.30XA Fall on same level, unspecified, initial encounter; Y92.009 Unspecified place in unspecified non-institutional (private) residence as the place of occurrence of the external cause ==

== ENCOUNTER → 2024-12-21 | Outpatient (CLI) | payer BC | LOC: M WUC 13:36 | PROVIDERS: ATTEND Student in an Organized Health Care Education/Training Program | DX: R53.83 Other fatigue (principal) ==